=== PATIENT | female | born 1945 | race Hispanic/Latino ===

== ENCOUNTER 2021-12-12 15:35 | Inpatient (IN) | payer OTHER, MEDICARE ==
[~2021-12-12] VITALS: Ht 167.6 cm; Wt 85.6 kg
[2021-12-12] MEDS ORDERED: 0.9%NACL 1000ML 1,000 ML IV ONE ×2 (16:30→21:22)
[2021-12-12 16:56] LABS: BASOPHILS % (AUTO) 1.1 % (0.0-5.0); EOSINOPHILS % (AUTO) 1.4 % (0.0-8.0); HEMATOCRIT 25.9 % (36-48); LYMPHOCYTES % (AUTO) 51.6 % (21.0-51.0); MEAN CORPUSCULAR HEMOGLOBIN 28.9 pg (27.0-33.0); MEAN CORPUSCULAR HGB CONC 31.7 g/dL (32.0-36.0); MEAN CORPUSCULAR VOLUME 91.2 fL (79-99); MONOCYTES % (AUTO) 19.9 % (3.0-13.0); NEUTROPHILS % (AUTO) 25.3 % (40.0-77.0); PLATELET COUNT (AUTO) 66 K/uL (130-400); RED BLOOD CELL COUNT(AUTO) 2.84 MIL/uL (4.00-5.50); RED CELL DISTRIBUTION WIDTH 14.1 % (11.0-15.5); WHITE BLOOD COUNT (AUTO) 2.8 K/uL (4.8-10.8)
[2021-12-12 17:13] LABS: ALBUMIN 1.8 g/dL (3.5-5.0); BILIRUBIN,TOTAL 0.3 mg/dL (0.2-1.0); TOTAL PROTEIN, SERUM 5.7 g/dL (6.0-8.3)
[2021-12-12 17:14] LABS: POTASSIUM 5.6 mmol/L (3.5-5.1)
[2021-12-12 17:16] LABS: CREATININE 10.1 mg/dL (0.5-1.5)
[2021-12-12 17:34] LABS: BAND NEUTROPHILS % (MANUAL) 2 % (0-2); EOSINOPHILS % (MANUAL) 2 % (1-6); LYMPHOCYTES % (MANUAL) 56 % (22-44); MAN.DIFF COMMENT-IMPRESSION MANUAL DIFFERENTIAL; MONOCYTES % (MANUAL) 21 % (2-9); SEGMENTED NEUTROPHILS % 19 % (40-70)
[2021-12-12 17:35] LABS: PLATELET MORPHOLOGY COMMENT DECREASED
[2021-12-12] MEDS ORDERED: DEXTROSE 5 % AND 0.9 % NACL 1,000 ML IV SCH (19:00)
[2021-12-12 19:19] LABS: INR 1.08 (0.85-1.15); PROTHROMBIN TIME 11.7 SEC (9.6-11.6)
[2021-12-12] MEDS ORDERED: KAYEXALATE 15GM/60ML RC ONE (20:00)
[2021-12-12] MEDS ORDERED: SODIUM BICARB 50MEQ 50ML VIAL IV STA (21:15)
[2021-12-12] MEDS ORDERED: 0.9% NACL 500ML IV.SOLN 500 ML IV ONE (21:22)
[2021-12-12] MEDS: DEXTROSE 50%-WATER 50 ML DISP.SYRIN IV ONE ×2 (21:23→23:17)
[2021-12-12] MEDS: HEPARIN 5,000 UNIT VIAL SQ SCH (21:23)
[2021-12-12] MEDS ORDERED: SODIUM BICARB 50MEQ 50ML VIAL 50 ML ONE (21:23)
[2021-12-12] MEDS ORDERED: KAYEXALATE 15GM/60ML ONE (21:24)
[2021-12-12] MEDS ORDERED: 0.9% NACL 500ML IV.SOLN 500 ML IV SCH (21:30)
[2021-12-12] MEDS ORDERED: NOREPINEPHRIN 4MG/NS 250ML 250 ML IV SCH (21:30)
[2021-12-12 21:51] LABS: ABG BASE EXCESS -11.1 mmol/L (-2.0-3.0); ABG HCO3 13.3 mmol/L (21.0-28.0); ABG OXYGEN SATURATION 93.6 % (95.0-99.0); ABG PCO2 25 mmHg (32-45)
[2021-12-12] MEDS ORDERED: IPRATROPIUM/ALBUTEROL SULFATE 3 ML SOLUTION IH PRN (22:00)
[2021-12-12] MEDS ORDERED: ONDANSETRON 4MG INJ IV PRN (22:00)
[2021-12-12] MEDS ORDERED: GUAIFENESIN-DM 200/20 MG 10 ML PO PRN (22:00)
[2021-12-12] MEDS ORDERED: NITROGLYCERIN 0.4 MG SL TAB SL PRN (22:00)
[2021-12-12] MEDS ORDERED: LACTULOSE 20 GM/30 ML UDCUP PO PRN (22:00)
[2021-12-12] MEDS ORDERED: ATOR40TA69 PO (22:20)
[2021-12-12] MEDS ORDERED: METF-444 PO (22:20)
[2021-12-12] MEDS ORDERED: HALO10TA12 PO (22:20)
[2021-12-12] MEDS ORDERED: METO50TA18 PO (22:26)
[2021-12-12] MEDS ORDERED: BENZ2TAB10 PO (22:26)
[2021-12-12] MEDS ORDERED: LOSA50TA64 PO (22:26)
[2021-12-12 23:12] LABS: APPEARANCE,URINE Cloudy (CLEAR); BILIRUBIN,URINE Negative (NEGATIVE); COLOR,URINE Dark Yellow (YELLOW); GLUCOSE, URINE (UA) TRACE mg/dL (NEGATIVE); KETONES,URINE Negative (NEGATIVE); LEUKOCYTE ESTERASE ,URINE Trace (NEGATIVE); NITRATE,URINE Negative (NEGATIVE); OCCULT BLOOD,URINE Large (NEGATIVE); PROTEIN,URINE POS 2+ mg/dL (NEGATIVE); UROBILINOGEN,URINE 0.2 mg/dL (0.2-1.0)
[2021-12-12] MEDS: 0.9%NACL 1000ML 1,000 ML IV SCH (23:17)
[2021-12-12 23:20] LABS: AMPHET/METH SCREEN,URINE NEGATIVE (NEGATIVE); BARBITURATE SCREEN, URINE NEGATIVE (NEGATIVE); BENZODIAZEPINES SCREEN,URINE NEGATIVE (NEGATIVE); CANNABINOID SCREEN,URINE NEGATIVE (NEGATIVE); COCAINE SCREEN,URINE NEGATIVE (NEGATIVE); OPIATE SCREEN,URINE NEGATIVE (NEGATIVE); PHENCYCLIDINE SCREEN,URINE NEGATIVE (NEGATIVE)
[2021-12-12 23:22] LABS: BACTERIA,URINE Few /HPF (None Seen); MUCUS,URINE Rare LPF (None Seen); SQUAMOUS EPITHELIAL CELL,UR Few /HPF (0-2)
[2021-12-13] VITALS (45 sets, daily range): BP systolic 86–150; BP diastolic 36–105
[2021-12-13] MEDS ORDERED: ZOSYN 3.375GM +NS 50ML IV STA (00:07)
[2021-12-13] MEDS ORDERED: SODIUM BICARB 8.4% 50ML SYRING 150 MEQ in 0.9%NACL 1000ML 1,000 ML IVP STA (00:10)
[2021-12-13] MEDS ORDERED: DEXTROSE 50%-WATER 50 ML DISP.SYRIN IV PRN (00:30)
[2021-12-13] MEDS ORDERED: PHARMACY COMMUNICATION MISC SCH (00:30)
[2021-12-13] MEDS ORDERED: GLUCAGON 1MG KIT 1 MG ML IM PRN (00:30)
[2021-12-13] MEDS ORDERED: 0.9% NACL 500ML IV.SOLN 500 ML IV ONE (00:30)
[2021-12-13] MEDS ORDERED: SODIUM BICARB 50MEQ 50ML VIAL 100 ML ONE (01:16)
[2021-12-13] MEDS ORDERED: DEXTROSE 5%-WATER 1,000 ML IV ONE ×2 (01:17→05:58)
[2021-12-13] MEDS ORDERED: SODIUM BICARB 50MEQ 50ML VIAL 50 ML ONE (01:18)
[2021-12-13] MEDS: 0.9%NACL 1000ML 1,000 ML IV SCH ×4 (01:43→17:30)
[2021-12-13] MEDS: SODIUM BICARB 8.4% 50ML SYRING 150 MEQ in DEXTROSE 5%-WATER 850 ML IVP SCH ×6 (02:00→23:17)
[2021-12-13] MEDS ORDERED: SODIUM BICARB 50MEQ 50ML VIAL 150 ML ONE (05:57)
[2021-12-13] MEDS: HEPARIN 5,000 UNIT VIAL SQ SCH ×2 (06:27→18:02)
[2021-12-13] MEDS: INSULIN HUMULIN R 100 UNIT/ML 3ML SQ SCH ×4 (06:33→21:34)
[2021-12-13 07:03] LABS: ABG BASE EXCESS -4.2 mmol/L (-2.0-3.0); ABG HCO3 17.5 mmol/L (21.0-28.0); ABG OXYGEN SATURATION 96.5 % (95.0-99.0); ABG PCO2 25 mmHg (32-45)
[2021-12-13 07:34] LABS: BASOPHILS % (AUTO) 1.3 % (0.0-5.0); EOSINOPHILS % (AUTO) 0.4 % (0.0-8.0); LYMPHOCYTES % (AUTO) 29.7 % (21.0-51.0); MEAN CORPUSCULAR HEMOGLOBIN 28.5 pg (27.0-33.0); MEAN CORPUSCULAR HGB CONC 32.9 g/dL (32.0-36.0); MEAN CORPUSCULAR VOLUME 86.6 fL (79-99); MONOCYTES % (AUTO) 19.7 % (3.0-13.0); NEUTROPHILS % (AUTO) 46.8 % (40.0-77.0); NUCLEATED RED BLOOD CELLS 0.8 % (0.0-0.19); PLATELET COUNT (AUTO) 70 K/uL (130-400); RED BLOOD CELL COUNT(AUTO) 2.77 MIL/uL (4.00-5.50); RED CELL DISTRIBUTION WIDTH 13.9 % (11.0-15.5); WHITE BLOOD COUNT (AUTO) 2.4 K/uL (4.8-10.8)
[2021-12-13 07:42] LABS: ALBUMIN 1.7 g/dL (3.5-5.0)
[2021-12-13 07:44] LABS: PHOSPHORUS 4.3 mg/dL (2.5-4.9)
[2021-12-13 07:56] LABS: BILIRUBIN,TOTAL 0.4 mg/dL (0.2-1.0); POTASSIUM 3.9 mmol/L (3.5-5.1); TOTAL PROTEIN, SERUM 5.4 g/dL (6.0-8.3)
[2021-12-13 08:14] LABS: CREATININE 8.2 mg/dL (0.5-1.5)
[2021-12-13 08:15] LABS: MAGNESIUM 1.7 mg/dL (1.80-2.40)
[2021-12-13 08:48] LABS: HEMOGLOBIN A1C 9.1 % (4.0-6.0)
[2021-12-13] MEDS ORDERED: AMIODARONE 900MG VIAL 540 MG in DEXTROSE 5%-WATER 300 ML IV SCH (16:00)
[2021-12-13] MEDS ORDERED: AMIODARONE 900MG VIAL 360 MG in DEXTROSE 5%-WATER 200 ML IV SCH (16:00)
[2021-12-13] MEDS ORDERED: [UNRECOGNIZED DRUG - REMARK] MISC SCH (16:00)
[2021-12-13] MEDS ORDERED: AMIODARONE 150MG VIAL 150 MG in DEXTROSE 5%-WATER 100 ML IV SCH (16:00)
[2021-12-13] MEDS: MAGNESIUM 2GM PREMIX 50ML 50 ML IV SCH (16:30)
[2021-12-13] MEDS ORDERED: METFORMIN HCL 500 MG TABLET PO SCH ×2 (17:00)
[2021-12-13] MEDS: CEFTRIAXONE 1G VIAL IVP SCH (17:00)
[2021-12-13 18:35] LABS: ALBUMIN 1.3 g/dL (3.5-5.0); CREATININE 6.3 mg/dL (0.5-1.5); PHOSPHORUS 3.1 mg/dL (2.5-4.9); POTASSIUM 3.4 mmol/L (3.5-5.1)
[2021-12-13] MEDS: METOPROLOL TARTRATE 50 MG TAB PO SCH (19:42)
[2021-12-13] MEDS: HALOPERIDOL 5 MG TABLET PO SCH (19:42)
[2021-12-13] MEDS ORDERED: BENZTROPINE 0.5MG TAB PO SCH (21:00)
[2021-12-14] VITALS (37 sets, daily range): BP systolic 92–166; BP diastolic 40–91
[2021-12-14] MEDS ORDERED: POTASSIUM CHLORIDE 20 MEQ/100 ML BAG IV ONE
[2021-12-14] MEDS ORDERED: 0.9%NACL 1000ML 0 ML IV ONE (01:52)
[2021-12-14 04:07] LABS: MEAN CORPUSCULAR HEMOGLOBIN 27.5 pg (27.0-33.0); MEAN CORPUSCULAR HGB CONC 33.2 g/dL (32.0-36.0); MEAN CORPUSCULAR VOLUME 82.9 fL (79-99); RED BLOOD CELL COUNT(AUTO) 2.51 MIL/uL (4.00-5.50); RED CELL DISTRIBUTION WIDTH 13.3 % (11.0-15.5); WHITE BLOOD COUNT (AUTO) 4.4 K/uL (4.8-10.8)
[2021-12-14] MEDS: SODIUM BICARB 8.4% 50ML SYRING 150 MEQ in DEXTROSE 5%-WATER 850 ML IVP SCH ×6 (04:09→20:52)
[2021-12-14 04:11] LABS: HEMATOCRIT 20.8 % (36-48)
[2021-12-14 04:41] LABS: MAGNESIUM 1.6 mg/dL (1.80-2.40)
[2021-12-14] MEDS: INSULIN HUMULIN R 100 UNIT/ML 3ML SQ SCH ×4 (06:12→20:05)
[2021-12-14] MEDS: HEPARIN 5,000 UNIT VIAL SQ SCH (06:33)
[2021-12-14] MEDS: ATORVASTATIN 40 MG TABLET PO SCH (08:12)
[2021-12-14] MEDS: METOPROLOL TARTRATE 50 MG TAB PO SCH ×2 (08:12→20:03)
[2021-12-14] MEDS ORDERED: LOSARTAN 50 MG TABLET PO SCH (09:00)
[2021-12-14 10:50] LABS: INR 1.15 (0.85-1.15); PROTHROMBIN TIME 12.4 SEC (9.6-11.6)
[2021-12-14 10:51] LABS: PARTIAL THROMBOPLASTIN TIME 37.4 SEC (26.3-35.5)
[2021-12-14] MEDS: MAGNESIUM 2GM PREMIX 50ML 50 ML IV SCH (10:54)
[2021-12-14] MEDS: CEFTRIAXONE 1G VIAL IVP SCH (17:07)
[2021-12-14 17:13] LABS: HEMATOCRIT 26.2 % (36-48)
[2021-12-14] MEDS ORDERED: THIAMINE HCL 100 MG TABLET PO ONE (18:30)
[2021-12-14] MEDS: HALOPERIDOL 5 MG TABLET PO SCH (20:03)
[2021-12-14 22:26] LABS: ALBUMIN 1.6 g/dL (3.5-5.0); PHOSPHORUS 3.5 mg/dL (2.5-4.9)
[2021-12-14 22:40] LABS: POTASSIUM 2.9 mmol/L (3.5-5.1)
[2021-12-14] MEDS ORDERED: KCL 20 MEQ ERTAB PO ONE (23:15)
[2021-12-14] MEDS ORDERED: POTASSIUM CHLORIDE 20MEQ/100ML 100 ML IV ONE (23:17)
[2021-12-15] VITALS (29 sets, daily range): BP systolic 62–168; BP diastolic 24–98
[2021-12-15] MEDS: SODIUM BICARB 8.4% 50ML SYRING 150 MEQ in DEXTROSE 5%-WATER 850 ML IVP SCH ×3 (01:37→11:28)
[2021-12-15] MEDS ORDERED: POTASSIUM CHLORIDE 20MEQ/100ML 100 ML IV ONE (02:35)
[2021-12-15 03:48] LABS: HEMATOCRIT 25.7 % (36-48); LYMPHOCYTES % (AUTO) 33.3 % (21.0-51.0); MEAN CORPUSCULAR HEMOGLOBIN 27.9 pg (27.0-33.0); MEAN CORPUSCULAR HGB CONC 32.3 g/dL (32.0-36.0); MEAN CORPUSCULAR VOLUME 86.5 fL (79-99); MONOCYTES % (AUTO) 17.5 % (3.0-13.0); NEUTROPHILS % (AUTO) 46.2 % (40.0-77.0); PLATELET COUNT (AUTO) 72 K/uL (130-400); RED BLOOD CELL COUNT(AUTO) 2.97 MIL/uL (4.00-5.50); RED CELL DISTRIBUTION WIDTH 14.6 % (11.0-15.5); WHITE BLOOD COUNT (AUTO) 4.1 K/uL (4.8-10.8)
[2021-12-15 04:03] LABS: % IRON SATURATION 60.9 % (22-44)
[2021-12-15 04:21] LABS: ALBUMIN 1.5 g/dL (3.5-5.0); BILIRUBIN,TOTAL 0.4 mg/dL (0.2-1.0); CREATININE 4.5 mg/dL (0.5-1.5); POTASSIUM 3.4 mmol/L (3.5-5.1); TOTAL PROTEIN, SERUM 5.4 g/dL (6.0-8.3)
[2021-12-15] MEDS: INSULIN HUMULIN R 100 UNIT/ML 3ML SQ SCH ×4 (06:27→20:21)
[2021-12-15] MEDS: ATORVASTATIN 40 MG TABLET PO SCH (08:32)
[2021-12-15] MEDS: METOPROLOL TARTRATE 50 MG TAB PO SCH ×2 (08:32→20:13)
[2021-12-15 10:39] LABS: MAGNESIUM 1.4 mg/dL (1.80-2.40)
[2021-12-15 10:41] LABS: POTASSIUM 2.9 mmol/L (3.5-5.1)
[2021-12-15] MEDS: MAGNESIUM 2GM PREMIX 50ML 50 ML IV SCH (11:08)
[2021-12-15] MEDS ORDERED: FUROSEMIDE 100MG VIAL ONE (11:48)
[2021-12-15] MEDS ORDERED: FUROSEMIDE 40MG VIAL IVP ONE (12:00)
[2021-12-15] MEDS ORDERED: KCL 20 MEQ ERTAB PO ONE ×2 (12:11)
[2021-12-15] MEDS: KCL 20 MEQ ERTAB PO PRN ×4 (12:25→18:14)
[2021-12-15] MEDS ORDERED: POTASSIUM CHLORIDE 20MEQ/100ML 100 ML IV PRN (12:30)
[2021-12-15] MEDS ORDERED: FUROSEMIDE 40MG VIAL ONE (15:09)
[2021-12-15] MEDS ORDERED: FUROSEMIDE 40MG VIAL IV ONE ×2 (15:30→19:00)
[2021-12-15] MEDS ORDERED: 0.9%NACL 1000ML 1,000 ML IV ONE (15:33)
[2021-12-15] MEDS ORDERED: 0.9%NACL 1000ML 1,000 ML IV SCH (16:00)
[2021-12-15 16:39] LABS: POTASSIUM 3.2 mmol/L (3.5-5.1)
[2021-12-15 16:54] LABS: ALBUMIN 1.6 g/dL (3.5-5.0)
[2021-12-15] MEDS: CEFTRIAXONE 1G VIAL IVP SCH (17:05)
[2021-12-15] MEDS: ACETAMINOPHEN 325 MG TAB PO PRN (17:07)
[2021-12-15] MEDS: HALOPERIDOL 5 MG TABLET PO SCH (20:13)
[2021-12-15] MEDS: AMIODARONE 200 MG TABLET PO SCH (20:14)
[2021-12-15 20:55] LABS: CREATININE 3.9 mg/dL (0.5-1.5); MAGNESIUM 1.8 mg/dL (1.80-2.40); POTASSIUM 3.6 mmol/L (3.5-5.1)
[2021-12-16] VITALS (22 sets, daily range): BP systolic 83–189; BP diastolic 32–162
[2021-12-16] MEDS: MAGNESIUM 2GM PREMIX 50ML 50 ML IV SCH (00:03)
[2021-12-16] MEDS: KCL 20 MEQ ERTAB PO PRN ×2 (00:03→01:56)
[2021-12-16 03:41] LABS: BASOPHILS % (AUTO) 0.6 % (0.0-5.0); EOSINOPHILS % (AUTO) 1.1 % (0.0-8.0); HEMATOCRIT 30.3 % (36-48); LYMPHOCYTES % (AUTO) 21.1 % (21.0-51.0); MEAN CORPUSCULAR HEMOGLOBIN 27.5 pg (27.0-33.0); MEAN CORPUSCULAR HGB CONC 31.4 g/dL (32.0-36.0); MEAN CORPUSCULAR VOLUME 87.6 fL (79-99); MONOCYTES % (AUTO) 11.9 % (3.0-13.0); NEUTROPHILS % (AUTO) 63.3 % (40.0-77.0); NUCLEATED RED BLOOD CELLS 0.7 % (0.0-0.19); PLATELET COUNT (AUTO) 103 K/uL (130-400); RED BLOOD CELL COUNT(AUTO) 3.46 MIL/uL (4.00-5.50); RED CELL DISTRIBUTION WIDTH 14.6 % (11.0-15.5)
[2021-12-16 04:08] LABS: ALBUMIN 1.8 g/dL (3.5-5.0); CHLORIDE 99 mmol/L (101-111); CREATININE 3.9 mg/dL (0.5-1.5); GLOMERULAR FILTR. RATE CALC 12 mL/min (>60); GLUCOSE,RANDOM 154 mg/dL (70-105); PHOSPHORUS 3.5 mg/dL (2.5-4.9); POTASSIUM 3.9 mmol/L (3.5-5.1); SODIUM SERUM 146 mmol/L (136-145)
[2021-12-16 04:51] LABS: CARBON DIOXIDE > 45 mmol/L (21-32)
[2021-12-16 04:53] LABS: UREA NITROGEN, BLOOD 77 mg/dL (7-18)
[2021-12-16] MEDS: LACTATED RINGERS 1000ML 1,000 ML IV SCH ×2 (06:28→16:07)
[2021-12-16] MEDS: INSULIN HUMULIN R 100 UNIT/ML 3ML SQ SCH ×4 (06:30→20:51)
[2021-12-16] MEDS: ATORVASTATIN 40 MG TABLET PO SCH (09:19)
[2021-12-16] MEDS: METOPROLOL TARTRATE 50 MG TAB PO SCH ×2 (09:19→20:50)
[2021-12-16] MEDS: AMIODARONE 200 MG TABLET PO SCH (09:19)
[2021-12-16] MEDS: FOLIC ACID 1 MG TABLET PO SCH (09:19)
[2021-12-16] MEDS: CYANOCOBALAMIN (VITAMIN B-12) 100 MCG TABLET PO SCH (09:19)
[2021-12-16] MEDS: FUROSEMIDE 100MG VIAL IV SCH ×2 (12:35→17:19)
[2021-12-16] MEDS ORDERED: CLONAZEPAM 1MG TAB PO STA (15:24)
[2021-12-16] MEDS ORDERED: OLANZAPINE ODT 5 MG TAB SL SCH ×2 (15:30→16:30)
[2021-12-16] MEDS: OLANZAPINE ODT 5 MG TAB SL PRN (16:07)
[2021-12-16] MEDS: CEFTRIAXONE 1G VIAL IVP SCH (16:09)
[2021-12-16] MEDS: HALOPERIDOL 5 MG TABLET PO SCH (20:50)
[2021-12-16 21:16] LABS: CREATININE 3.9 mg/dL (0.5-1.5); POTASSIUM 4.1 mmol/L (3.5-5.1)
[2021-12-17] VITALS (15 sets, daily range): BP systolic 104–167; BP diastolic 40–115
[2021-12-17] MEDS: FUROSEMIDE 100MG VIAL IV SCH ×4 (00:24→17:55)
[2021-12-17] MEDS: LACTATED RINGERS 1000ML 1,000 ML IV SCH ×3 (00:30→22:00)
[2021-12-17 03:39] LABS: BASOPHILS % (AUTO) 0.6 % (0.0-5.0); HEMATOCRIT 27.6 % (36-48); MEAN CORPUSCULAR HEMOGLOBIN 28.3 pg (27.0-33.0); MEAN CORPUSCULAR HGB CONC 31.2 g/dL (32.0-36.0); MEAN CORPUSCULAR VOLUME 90.8 fL (79-99); MONOCYTES % (AUTO) 10.6 % (3.0-13.0); NEUTROPHILS % (AUTO) 63.2 % (40.0-77.0); PLATELET COUNT (AUTO) 112 K/uL (130-400); RED BLOOD CELL COUNT(AUTO) 3.04 MIL/uL (4.00-5.50); WHITE BLOOD COUNT (AUTO) 7.3 K/uL (4.8-10.8)
[2021-12-17] MEDS: OLANZAPINE ODT 5 MG TAB SL PRN ×2 (05:39→20:10)
[2021-12-17 05:51] LABS: CREATININE 3.9 mg/dL (0.5-1.5); POTASSIUM 3.7 mmol/L (3.5-5.1)
[2021-12-17] MEDS: INSULIN HUMULIN R 100 UNIT/ML 3ML SQ SCH ×4 (06:45→21:00)
[2021-12-17] MEDS: AMIODARONE 200 MG TABLET PO SCH (08:44)
[2021-12-17] MEDS: FOLIC ACID 1 MG TABLET PO SCH (08:44)
[2021-12-17] MEDS: METOPROLOL TARTRATE 50 MG TAB PO SCH ×2 (08:44→21:00)
[2021-12-17] MEDS: ATORVASTATIN 40 MG TABLET PO SCH (08:44)
[2021-12-17] MEDS: CEFTRIAXONE 1G VIAL IVP SCH (08:44)
[2021-12-17] MEDS: CYANOCOBALAMIN (VITAMIN B-12) 100 MCG TABLET PO SCH (08:44)
[2021-12-17] MEDS ORDERED: DiphenhydrAMINE HCL 50 MG/ML VIAL IM ONE (16:00)
[2021-12-17] MEDS: CLONAZEPAM 1MG TAB PO PRN (17:57)
[2021-12-17 20:30] LABS: POTASSIUM 3.9 mmol/L (3.5-5.1)
[2021-12-17] MEDS ORDERED: DiphenhydrAMINE HCL 50 MG/ML VIAL IV ONE (20:30)
[2021-12-17] MEDS ORDERED: DiphenhydrAMINE HCL 50 MG/ML VIAL ONE (20:34)
[2021-12-18] VITALS (19 sets, daily range): BP systolic 69–166; BP diastolic 40–119
[2021-12-18] MEDS: FUROSEMIDE 100MG VIAL IV SCH ×5 (01:00→23:54)
[2021-12-18] MEDS ORDERED: DiphenhydrAMINE HCL 50 MG/ML VIAL IM SCH (04:00)
[2021-12-18] MEDS: DiphenhydrAMINE HCL 50 MG/ML VIAL IV SCH ×4 (04:30→20:23)
[2021-12-18] MEDS: INSULIN HUMULIN R 100 UNIT/ML 3ML SQ SCH ×4 (06:44→20:06)
[2021-12-18] MEDS: CLONAZEPAM 1MG TAB PO PRN (07:13)
[2021-12-18] MEDS: LACTATED RINGERS 1000ML 1,000 ML IV SCH ×2 (08:10→18:31)
[2021-12-18] MEDS: ATORVASTATIN 40 MG TABLET PO SCH (08:48)
[2021-12-18] MEDS: CYANOCOBALAMIN (VITAMIN B-12) 100 MCG TABLET PO SCH (08:48)
[2021-12-18] MEDS: AMIODARONE 200 MG TABLET PO SCH (08:48)
[2021-12-18] MEDS: CEFTRIAXONE 1G VIAL IVP SCH (08:48)
[2021-12-18] MEDS: FOLIC ACID 1 MG TABLET PO SCH (08:48)
[2021-12-18] MEDS: METOPROLOL TARTRATE 50 MG TAB PO SCH ×2 (08:48→20:23)
[2021-12-18 10:33] LABS: HEMATOCRIT 27.8 % (36-48); MEAN CORPUSCULAR HEMOGLOBIN 27.5 pg (27.0-33.0); MEAN CORPUSCULAR HGB CONC 29.9 g/dL (32.0-36.0); MEAN CORPUSCULAR VOLUME 92.1 fL (79-99); RED BLOOD CELL COUNT(AUTO) 3.02 MIL/uL (4.00-5.50); RED CELL DISTRIBUTION WIDTH 15.5 % (11.0-15.5); WHITE BLOOD COUNT (AUTO) 10.6 K/uL (4.8-10.8)
[2021-12-18 10:49] LABS: CREATININE 4.1 mg/dL (0.5-1.5); MAGNESIUM 1.6 mg/dL (1.80-2.40); POTASSIUM 3.6 mmol/L (3.5-5.1)
[2021-12-18] MEDS: MAGNESIUM 2GM PREMIX 50ML 50 ML IV SCH (11:48)
[2021-12-18] MEDS ORDERED: 0.9%NACL 1000ML 1,000 ML IV SCH (14:30)
[2021-12-18] MEDS ORDERED: NOREPINEPHRIN 4MG/NS 250ML 250 ML IV PRN (14:30)
[2021-12-18] MEDS ORDERED: 0.9% NACL 500ML IV.SOLN 0 ML IV ONE (14:31)
[2021-12-18] MEDS ORDERED: 0.9%NACL 1000ML 1,000 ML IV ONE (14:35)
[2021-12-18] MEDS ORDERED: LORAZEPAM 2 MG/ML 1 ML VIAL ONE (19:02)
[2021-12-18] MEDS ORDERED: LEVETIRACETAM 500 MG/5 ML SD VIAL IV SCH (19:30)
[2021-12-18] MEDS ORDERED: LEVETIRACETAM 1,000 MG in 0.9%NACL 100ML 100 ML IV SCH (19:30)
[2021-12-18] MEDS ORDERED: COMPOUND IV MISC 1 EACH IVSOLN MISC PRN (19:30)
[2021-12-18] MEDS: BALSAM PERU/CASTOR OIL 60 GM TUBE TP SCH (20:23)
[2021-12-19] VITALS (21 sets, daily range): BP systolic 94–146; BP diastolic 42–69
[2021-12-19 00:28] LABS: APPEARANCE,URINE Clear (CLEAR); BILIRUBIN,URINE Negative (NEGATIVE); COLOR,URINE Yellow (YELLOW); GLUCOSE, URINE (UA) Negative (NEGATIVE); KETONES,URINE Negative (NEGATIVE); LEUKOCYTE ESTERASE ,URINE Trace (NEGATIVE); NITRATE,URINE Negative (NEGATIVE); OCCULT BLOOD,URINE Moderate (NEGATIVE); PH,URINE 8.5 (5.0-8.0); PROTEIN,URINE Trace mg/dL (NEGATIVE); UROBILINOGEN,URINE 0.2 mg/dL (0.2-1.0)
[2021-12-19 00:35] LABS: BACTERIA,URINE Rare /HPF (None Seen); SQUAMOUS EPITHELIAL CELL,UR 0-2 /HPF (0-2); WBC,URINE 0-1 /HPF (0-1)
[2021-12-19] MEDS: DiphenhydrAMINE HCL 50 MG/ML VIAL IV SCH ×3 (03:28→20:48)
[2021-12-19] MEDS: LACTATED RINGERS 1000ML 1,000 ML IV SCH ×3 (03:28→23:20)
[2021-12-19 03:49] LABS: HEMATOCRIT 27.3 % (36-48); MEAN CORPUSCULAR HGB CONC 28.6 g/dL (32.0-36.0); MEAN CORPUSCULAR VOLUME 94.5 fL (79-99); RED BLOOD CELL COUNT(AUTO) 2.89 MIL/uL (4.00-5.50); RED CELL DISTRIBUTION WIDTH 15.5 % (11.0-15.5); WHITE BLOOD COUNT (AUTO) 11.1 K/uL (4.8-10.8)
[2021-12-19 04:57] LABS: ALBUMIN 1.9 g/dL (3.5-5.0); BILIRUBIN,TOTAL 0.6 mg/dL (0.2-1.0); CREATININE 3.9 mg/dL (0.5-1.5); MAGNESIUM 2.1 mg/dL (1.80-2.40); POTASSIUM 4.1 mmol/L (3.5-5.1); TOTAL PROTEIN, SERUM 6.1 g/dL (6.0-8.3)
[2021-12-19] MEDS: FUROSEMIDE 100MG VIAL IV SCH ×4 (05:48→23:20)
[2021-12-19] MEDS: INSULIN HUMULIN R 100 UNIT/ML 3ML SQ SCH ×4 (07:30→20:19)
[2021-12-19] MEDS: AMIODARONE 200 MG TABLET PO SCH (08:21)
[2021-12-19] MEDS: ATORVASTATIN 40 MG TABLET PO SCH (08:21)
[2021-12-19] MEDS: FOLIC ACID 1 MG TABLET PO SCH (08:21)
[2021-12-19] MEDS: METOPROLOL TARTRATE 50 MG TAB PO SCH ×2 (08:21→20:19)
[2021-12-19] MEDS: CYANOCOBALAMIN (VITAMIN B-12) 100 MCG TABLET PO SCH (08:21)
[2021-12-19] MEDS ORDERED: LEVETIRACETAM 500 MG in 0.9%NACL 100ML 100 ML IV SCH (09:00)
[2021-12-19] MEDS ORDERED: LEVETIRACETAM 500 MG/5 ML SD VIAL IV SCH ×2 (09:00→19:30)
[2021-12-19] MEDS: CEFTRIAXONE 1G VIAL IVP SCH (09:18)
[2021-12-19] MEDS: BALSAM PERU/CASTOR OIL 60 GM TUBE TP SCH ×3 (09:19→20:19)
[2021-12-19] MEDS ORDERED: DiphenhydrAMINE HCL 50 MG/ML VIAL IV PRN (16:00)
[2021-12-19] MEDS ORDERED: LEVETIRACETAM 750 MG in 0.9%NACL 100ML 100 ML IV SCH (19:30)
[2021-12-19] MEDS ORDERED: DiphenhydrAMINE HCL 50 MG/ML VIAL ONE (20:12)
[2021-12-20] VITALS (37 sets, daily range): BP systolic 91–127; BP diastolic 39–82
[2021-12-20] MEDS: DiphenhydrAMINE HCL 50 MG/ML VIAL IV SCH ×2 (03:31→08:19)
[2021-12-20] MEDS: FUROSEMIDE 100MG VIAL IV SCH ×4 (05:03→23:29)
[2021-12-20] MEDS: INSULIN HUMULIN R 100 UNIT/ML 3ML SQ SCH ×4 (06:32→20:27)
[2021-12-20] MEDS: CEFTRIAXONE 1G VIAL IVP SCH (08:19)
[2021-12-20] MEDS: CYANOCOBALAMIN (VITAMIN B-12) 100 MCG TABLET PO SCH (08:19)
[2021-12-20] MEDS: LACTATED RINGERS 1000ML 1,000 ML IV SCH ×2 (08:19→20:31)
[2021-12-20] MEDS: ATORVASTATIN 40 MG TABLET PO SCH (08:19)
[2021-12-20] MEDS: AMIODARONE 200 MG TABLET PO SCH (08:19)
[2021-12-20] MEDS: FOLIC ACID 1 MG TABLET PO SCH (08:19)
[2021-12-20] MEDS: METOPROLOL TARTRATE 50 MG TAB PO SCH ×2 (08:19→20:26)
[2021-12-20] MEDS: BALSAM PERU/CASTOR OIL 60 GM TUBE TP SCH ×3 (08:20→20:45)
[2021-12-20] MEDS ORDERED: MIDODRINE HCL 5 MG TABLET PO SCH ×2 (09:30→14:00)
[2021-12-20 09:48] LABS: CREATININE 3.4 mg/dL (0.5-1.5); POTASSIUM 3.2 mmol/L (3.5-5.1)
[2021-12-20 09:51] LABS: PHOSPHORUS 4.4 mg/dL (2.5-4.9)
[2021-12-20] MEDS: CHLORHEXIDINE GLUCONATE 473 ML MOUTHWASH MM SCH ×2 (10:53→20:45)
[2021-12-20] MEDS: KCL 20 MEQ ERTAB PO PRN ×2 (12:14→14:30)
[2021-12-20] MEDS ORDERED: LEVETIRACETAM 500 MG/5 ML SD VIAL IV SCH (16:10)
[2021-12-20] MEDS ORDERED: COMPOUND IV MISC 1 EACH IVSOLN MISC PRN (16:30)
[2021-12-20] MEDS: LEVETIRACETAM 750 MG in 0.9%NACL 100ML 100 ML IV SCH ×2 (16:48→20:32)
[2021-12-20] MEDS: CLONAZEPAM 1MG TAB PO PRN (20:32)
[2021-12-20] MEDS: MIDODRINE HCL 5 MG TABLET PO PRN (20:32)
[2021-12-20] MEDS: ACETAMINOPHEN 325 MG TAB PO PRN (20:36)
[2021-12-20] MEDS ORDERED: OLANZAPINE 5 MG TAB ONE (23:17)
[2021-12-21 00:02] VITALS: BP 106/45
[2021-12-21] MEDS: ACETAMINOPHEN 325 MG TAB PO PRN (03:21)
[2021-12-21 04:05] VITALS: BP 96/79
[2021-12-21] MEDS: CLONAZEPAM 1MG TAB PO PRN ×2 (05:07→21:35)
[2021-12-21] MEDS: FUROSEMIDE 100MG VIAL IV SCH ×3 (05:09→18:19)
[2021-12-21] MEDS: LACTATED RINGERS 1000ML 1,000 ML IV SCH ×2 (05:24→13:35)
[2021-12-21] MEDS: INSULIN HUMULIN R 100 UNIT/ML 3ML SQ SCH ×3 (06:45→18:00)
[2021-12-21] MEDS: CHLORHEXIDINE GLUCONATE 473 ML MOUTHWASH MM SCH ×2 (09:13→21:00)
[2021-12-21] MEDS: CEFTRIAXONE 1G VIAL IVP SCH (09:13)
[2021-12-21] MEDS: CYANOCOBALAMIN (VITAMIN B-12) 100 MCG TABLET PO SCH (09:13)
[2021-12-21] MEDS: METOPROLOL TARTRATE 50 MG TAB PO SCH ×2 (09:13→21:00)
[2021-12-21] MEDS: ATORVASTATIN 40 MG TABLET PO SCH (09:13)
[2021-12-21] MEDS: FOLIC ACID 1 MG TABLET PO SCH (09:13)
[2021-12-21] MEDS: AMIODARONE 200 MG TABLET PO SCH (09:13)
[2021-12-21] MEDS: BALSAM PERU/CASTOR OIL 60 GM TUBE TP SCH ×3 (09:14→21:00)
[2021-12-21] MEDS: LEVETIRACETAM 750 MG in 0.9%NACL 100ML 100 ML IV SCH ×2 (09:15→21:00)
[2021-12-21 11:40] VITALS: BP 100/44
[2021-12-21 16:30] VITALS: BP 112/50
[2021-12-21] MEDS: CITALOPRAM 20 MG TABLET PO SCH (18:19)
[2021-12-21 20:00] VITALS: BP 115/65
[2021-12-22] VITALS: BP 109/61
[2021-12-22] MEDS ORDERED: FUROSEMIDE 20MG VIAL ONE ×2 (01:28→06:38)
[2021-12-22] MEDS: LACTATED RINGERS 1000ML 1,000 ML IV SCH ×2 (01:36→12:10)
[2021-12-22 04:00] VITALS: BP 106/56
[2021-12-22 05:08] LABS: HEMATOCRIT 28.4 % (36-48); MEAN CORPUSCULAR HEMOGLOBIN 27.6 pg (27.0-33.0); MEAN CORPUSCULAR HGB CONC 28.5 g/dL (32.0-36.0); MEAN CORPUSCULAR VOLUME 96.9 fL (79-99); PLATELET COUNT (AUTO) 132 K/uL (130-400); RED BLOOD CELL COUNT(AUTO) 2.93 MIL/uL (4.00-5.50); RED CELL DISTRIBUTION WIDTH 15.6 % (11.0-15.5); WHITE BLOOD COUNT (AUTO) 12.7 K/uL (4.8-10.8)
[2021-12-22 05:24] LABS: CREATININE 3.7 mg/dL (0.5-1.5); POTASSIUM 3.6 mmol/L (3.5-5.1)
[2021-12-22] MEDS: INSULIN HUMULIN R 100 UNIT/ML 3ML SQ SCH ×4 (06:00→17:57)
[2021-12-22] MEDS: FUROSEMIDE 100MG VIAL IV SCH ×2 (06:00)
[2021-12-22] MEDS ORDERED: FUROSEMIDE 40MG VIAL ONE (06:38)
[2021-12-22 07:20] VITALS: BP 93/39
[2021-12-22] MEDS: CHLORHEXIDINE GLUCONATE 473 ML MOUTHWASH MM SCH ×2 (08:32→21:00)
[2021-12-22] MEDS: CYANOCOBALAMIN (VITAMIN B-12) 100 MCG TABLET PO SCH (08:32)
[2021-12-22] MEDS: ATORVASTATIN 40 MG TABLET PO SCH (08:32)
[2021-12-22] MEDS: METOPROLOL TARTRATE 50 MG TAB PO SCH ×2 (08:32→20:12)
[2021-12-22] MEDS: FOLIC ACID 1 MG TABLET PO SCH (08:32)
[2021-12-22] MEDS: CITALOPRAM 20 MG TABLET PO SCH (08:32)
[2021-12-22] MEDS: CEFTRIAXONE 1G VIAL IVP SCH (08:32)
[2021-12-22] MEDS: BALSAM PERU/CASTOR OIL 60 GM TUBE TP SCH ×3 (08:33→23:39)
[2021-12-22] MEDS: AMIODARONE 200 MG TABLET PO SCH (08:33)
[2021-12-22] MEDS: LEVETIRACETAM 750 MG in 0.9%NACL 100ML 100 ML IV SCH ×2 (09:06→20:11)
[2021-12-22 11:10] VITALS: BP 118/75
[2021-12-22 11:20] VITALS: BP 117/53
[2021-12-22] MEDS: FUROSEMIDE 40MG VIAL IV SCH ×3 (12:27→21:30)
[2021-12-22] MEDS ORDERED: HYDROXYZINE 25 MG TABLET PO STA (15:35)
[2021-12-22] MEDS: CLONAZEPAM 1MG TAB PO PRN (17:14)
[2021-12-22] MEDS: ACETAMINOPHEN 325 MG TAB PO PRN (17:15)
[2021-12-22] MEDS ORDERED: FUROSEMIDE 100MG VIAL IV SCH (21:00)
[2021-12-22 23:50] VITALS: BP 113/64
[2021-12-23] MEDS: LACTATED RINGERS 1000ML 1,000 ML IV SCH ×3 (01:01→21:56)
[2021-12-23] MEDS: CLONAZEPAM 1MG TAB PO PRN ×3 (03:48→21:58)
[2021-12-23] MEDS: FUROSEMIDE 40MG VIAL IV SCH ×4 (03:50→21:58)
[2021-12-23 03:56] VITALS: BP 152/81
[2021-12-23 04:59] LABS: BASOPHILS % (AUTO) 0.3 % (0.0-5.0); EOSINOPHILS % (AUTO) 2.3 % (0.0-8.0); HEMATOCRIT 28.2 % (36-48); LYMPHOCYTES % (AUTO) 21.5 % (21.0-51.0); MEAN CORPUSCULAR HEMOGLOBIN 27.5 pg (27.0-33.0); MEAN CORPUSCULAR HGB CONC 28.4 g/dL (32.0-36.0); MEAN CORPUSCULAR VOLUME 96.9 fL (79-99); MONOCYTES % (AUTO) 5.2 % (3.0-13.0); NEUTROPHILS % (AUTO) 70.3 % (40.0-77.0); PLATELET COUNT (AUTO) 214 K/uL (130-400); RED BLOOD CELL COUNT(AUTO) 2.91 MIL/uL (4.00-5.50); RED CELL DISTRIBUTION WIDTH 15.1 % (11.0-15.5); WHITE BLOOD COUNT (AUTO) 11.6 K/uL (4.8-10.8)
[2021-12-23 05:11] LABS: B-TYPE NATRIURETIC PEPTIDE 201 pg/mL (0-100)
[2021-12-23] MEDS: INSULIN HUMULIN R 100 UNIT/ML 3ML SQ SCH ×4 (06:00→16:33)
[2021-12-23 06:51] VITALS: BP 131/53
[2021-12-23 08:06] VITALS: BP 131/53
[2021-12-23] MEDS: CHLORHEXIDINE GLUCONATE 473 ML MOUTHWASH MM SCH ×2 (09:00→21:57)
[2021-12-23] MEDS: BALSAM PERU/CASTOR OIL 60 GM TUBE TP SCH ×3 (09:00→21:58)
[2021-12-23] MEDS: METOPROLOL TARTRATE 50 MG TAB PO SCH ×2 (09:25→21:57)
[2021-12-23] MEDS: LEVETIRACETAM 750 MG in 0.9%NACL 100ML 100 ML IV SCH ×2 (09:25→21:56)
[2021-12-23] MEDS: CEFTRIAXONE 1G VIAL IVP SCH (09:25)
[2021-12-23] MEDS: CITALOPRAM 20 MG TABLET PO SCH (09:26)
[2021-12-23] MEDS: FOLIC ACID 1 MG TABLET PO SCH (09:26)
[2021-12-23] MEDS: AMIODARONE 200 MG TABLET PO SCH (09:26)
[2021-12-23] MEDS: CYANOCOBALAMIN (VITAMIN B-12) 100 MCG TABLET PO SCH (09:26)
[2021-12-23] MEDS: ATORVASTATIN 40 MG TABLET PO SCH (09:27)
[2021-12-23 12:00] VITALS: BP 120/89
[2021-12-23] MEDS: ACETAMINOPHEN 325 MG TAB PO PRN (15:36)
[2021-12-23 16:42] VITALS: BP 105/74
[2021-12-23] MEDS: HYDROXYZINE 25 MG TABLET PO PRN (17:49)
[2021-12-23 21:22] VITALS: BP 127/75
[2021-12-24 00:30] VITALS: BP 131/53
[2021-12-24 05:13] VITALS: BP 122/56
[2021-12-24] MEDS: INSULIN HUMULIN R 100 UNIT/ML 3ML SQ SCH ×3 (06:00→12:00)
[2021-12-24] MEDS: FUROSEMIDE 40MG VIAL IV SCH ×3 (06:43→17:31)
[2021-12-24] MEDS: LACTATED RINGERS 1000ML 1,000 ML IV SCH ×2 (06:47→17:31)
[2021-12-24 08:00] VITALS: BP 128/54
[2021-12-24] MEDS: BALSAM PERU/CASTOR OIL 60 GM TUBE TP SCH ×2 (09:00→14:19)
[2021-12-24 09:25] LABS: CREATININE 2.6 mg/dL (0.5-1.5)
[2021-12-24] MEDS: CEFTRIAXONE 1G VIAL IVP SCH (10:19)
[2021-12-24] MEDS: CYANOCOBALAMIN (VITAMIN B-12) 100 MCG TABLET PO SCH (10:21)
[2021-12-24] MEDS: METOPROLOL TARTRATE 50 MG TAB PO SCH (10:21)
[2021-12-24] MEDS: FOLIC ACID 1 MG TABLET PO SCH (10:21)
[2021-12-24] MEDS: AMIODARONE 200 MG TABLET PO SCH (10:21)
[2021-12-24] MEDS: CITALOPRAM 20 MG TABLET PO SCH (10:21)
[2021-12-24] MEDS: LEVETIRACETAM 750 MG in 0.9%NACL 100ML 100 ML IV SCH (10:21)
[2021-12-24] MEDS: ATORVASTATIN 40 MG TABLET PO SCH (10:21)
[2021-12-24] MEDS: CHLORHEXIDINE GLUCONATE 473 ML MOUTHWASH MM SCH (10:33)
[2021-12-24 12:00] VITALS: BP 107/32
[2021-12-24 16:00] VITALS: BP 128/54
[2021-12-24] MEDS ORDERED: KCL 20 MEQ ERTAB PO ONE (20:30)
[2021-12-24 20:44] VITALS: BP 109/50
[2021-12-25] VITALS (8 sets, daily range): BP systolic 82–138; BP diastolic 43–61
[2021-12-25] MEDS: POTASSIUM CHLORIDE 10% ELIXIR 20 MEQ/15 ML UDCUP PO PRN ×2 (00:37→05:36)
[2021-12-25] MEDS: HYDROXYZINE 25 MG TABLET PO PRN (00:38)
[2021-12-25] MEDS: METOPROLOL TARTRATE 50 MG TAB PO SCH ×3 (00:38→20:37)
[2021-12-25] MEDS: FUROSEMIDE 40MG VIAL IV SCH ×4 (00:38→18:11)
[2021-12-25] MEDS: LEVETIRACETAM 750 MG in 0.9%NACL 100ML 100 ML IV SCH ×3 (00:40→20:37)
[2021-12-25] MEDS: CHLORHEXIDINE GLUCONATE 473 ML MOUTHWASH MM SCH ×2 (00:41→09:43)
[2021-12-25] MEDS: BALSAM PERU/CASTOR OIL 60 GM TUBE TP SCH ×3 (00:41→13:35)
[2021-12-25] MEDS: LACTATED RINGERS 1000ML 1,000 ML IV SCH ×2 (03:48→11:50)
[2021-12-25 04:39] LABS: HEMATOCRIT 24.6 % (36-48); MEAN CORPUSCULAR HEMOGLOBIN 28.2 pg (27.0-33.0); MEAN CORPUSCULAR HGB CONC 28.9 g/dL (32.0-36.0); MEAN CORPUSCULAR VOLUME 97.6 fL (79-99); RED BLOOD CELL COUNT(AUTO) 2.52 MIL/uL (4.00-5.50)
[2021-12-25 04:58] LABS: ALBUMIN 1.9 g/dL (3.5-5.0); BILIRUBIN,TOTAL 0.3 mg/dL (0.2-1.0); CREATININE 2.3 mg/dL (0.5-1.5); MAGNESIUM 1.3 mg/dL (1.80-2.40); POTASSIUM 3.3 mmol/L (3.5-5.1); TOTAL PROTEIN, SERUM 6.4 g/dL (6.0-8.3)
[2021-12-25] MEDS: INSULIN HUMULIN R 100 UNIT/ML 3ML SQ SCH ×4 (05:23→18:00)
[2021-12-25] MEDS: MAGNESIUM 2GM PREMIX 50ML 50 ML IV SCH (05:35)
[2021-12-25] MEDS: CLONAZEPAM 1MG TAB PO PRN ×2 (05:36→20:38)
[2021-12-25] MEDS: CEFTRIAXONE 1G VIAL IVP SCH (09:35)
[2021-12-25] MEDS: FOLIC ACID 1 MG TABLET PO SCH (09:35)
[2021-12-25] MEDS: CYANOCOBALAMIN (VITAMIN B-12) 100 MCG TABLET PO SCH (09:35)
[2021-12-25] MEDS: ATORVASTATIN 40 MG TABLET PO SCH (09:35)
[2021-12-25] MEDS: MIDODRINE HCL 5 MG TABLET PO PRN (09:35)
[2021-12-25] MEDS: CITALOPRAM 20 MG TABLET PO SCH (09:36)
[2021-12-25] MEDS: AMIODARONE 200 MG TABLET PO SCH (09:36)
[2021-12-25] MEDS: 1/2 NS 1000ML 1,000 ML IV SCH (14:15)
[2021-12-25] MEDS: ACETAMINOPHEN 325 MG TAB PO PRN (20:38)
[2021-12-25] MEDS ORDERED: LACTULOSE 20 GM/30 ML UDCUP PO PRN (22:00)
[2021-12-25] MEDS ORDERED: LACTULOSE 20 GM/30 ML UDCUP PO ONE (22:00)
[2021-12-25] MEDS ORDERED: BISACODYL 10 MG SUPP.RECT RC ONE (22:00)
[2021-12-26] MEDS: FUROSEMIDE 40MG VIAL IV SCH ×4 (00:41→17:42)
[2021-12-26] MEDS: BALSAM PERU/CASTOR OIL 60 GM TUBE TP SCH ×4 (00:41→21:36)
[2021-12-26] MEDS: POTASSIUM CHLORIDE 10% ELIXIR 20 MEQ/15 ML UDCUP PO PRN (00:41)
[2021-12-26] MEDS: CHLORHEXIDINE GLUCONATE 473 ML MOUTHWASH MM SCH ×3 (00:42→21:35)
[2021-12-26] MEDS: 1/2 NS 1000ML 1,000 ML IV SCH ×3 (01:14→21:38)
[2021-12-26] MEDS: HYDROXYZINE 25 MG TABLET PO PRN ×2 (02:51→21:32)
[2021-12-26] MEDS: ACETAMINOPHEN 325 MG TAB PO PRN ×2 (03:03→17:41)
[2021-12-26 03:58] VITALS: BP 126/54
[2021-12-26 04:17] LABS: HEMATOCRIT 22.8 % (36-48); MEAN CORPUSCULAR HEMOGLOBIN 28.7 pg (27.0-33.0); MEAN CORPUSCULAR HGB CONC 31.1 g/dL (32.0-36.0); MEAN CORPUSCULAR VOLUME 92.3 fL (79-99); RED BLOOD CELL COUNT(AUTO) 2.47 MIL/uL (4.00-5.50); RED CELL DISTRIBUTION WIDTH 14.6 % (11.0-15.5); WHITE BLOOD COUNT (AUTO) 8.6 K/uL (4.8-10.8)
[2021-12-26 04:27] LABS: CREATININE 1.9 mg/dL (0.5-1.5); MAGNESIUM 1.7 mg/dL (1.80-2.40); POTASSIUM 3.5 mmol/L (3.5-5.1)
[2021-12-26] MEDS: CLONAZEPAM 1MG TAB PO PRN ×3 (04:47→21:32)
[2021-12-26] MEDS: INSULIN HUMULIN R 100 UNIT/ML 3ML SQ SCH ×4 (06:00→17:39)
[2021-12-26 07:30] VITALS: BP 100/74
[2021-12-26] MEDS: CEFTRIAXONE 1G VIAL IVP SCH (09:57)
[2021-12-26] MEDS: CYANOCOBALAMIN (VITAMIN B-12) 100 MCG TABLET PO SCH (09:57)
[2021-12-26] MEDS: FOLIC ACID 1 MG TABLET PO SCH (09:57)
[2021-12-26] MEDS: ATORVASTATIN 40 MG TABLET PO SCH (09:58)
[2021-12-26] MEDS: AMIODARONE 200 MG TABLET PO SCH (09:58)
[2021-12-26] MEDS: CITALOPRAM 20 MG TABLET PO SCH (09:58)
[2021-12-26] MEDS: METOPROLOL TARTRATE 50 MG TAB PO SCH ×2 (09:58→21:32)
[2021-12-26] MEDS: LEVETIRACETAM 750 MG in 0.9%NACL 100ML 100 ML IV SCH ×2 (10:01→21:35)
[2021-12-26 12:00] VITALS: BP 143/71
[2021-12-26] MEDS: MAGNESIUM 2GM PREMIX 50ML 50 ML IV SCH (12:31)
[2021-12-26 16:00] VITALS: BP 106/52
[2021-12-26 20:37] VITALS: BP 110/68
[2021-12-26] MEDS: OLANZAPINE ODT 5 MG TAB SL SCH (21:33)
[2021-12-27] MEDS: FUROSEMIDE 40MG VIAL IV SCH ×4 (01:49→17:11)
[2021-12-27 03:50] VITALS: BP 110/49
[2021-12-27] MEDS: INSULIN HUMULIN R 100 UNIT/ML 3ML SQ SCH ×4 (05:45→17:08)
[2021-12-27 08:00] VITALS: BP 97/46
[2021-12-27] MEDS: METOPROLOL TARTRATE 50 MG TAB PO SCH ×2 (09:00→22:21)
[2021-12-27] MEDS: CYANOCOBALAMIN (VITAMIN B-12) 100 MCG TABLET PO SCH (09:03)
[2021-12-27] MEDS: CITALOPRAM 20 MG TABLET PO SCH (09:03)
[2021-12-27] MEDS: ATORVASTATIN 40 MG TABLET PO SCH (09:03)
[2021-12-27] MEDS: CEFTRIAXONE 1G VIAL IVP SCH (09:03)
[2021-12-27] MEDS: CHLORHEXIDINE GLUCONATE 473 ML MOUTHWASH MM SCH ×2 (09:04→22:22)
[2021-12-27] MEDS: AMIODARONE 200 MG TABLET PO SCH (09:04)
[2021-12-27] MEDS: FOLIC ACID 1 MG TABLET PO SCH (09:04)
[2021-12-27] MEDS: BALSAM PERU/CASTOR OIL 60 GM TUBE TP SCH ×3 (09:05→22:22)
[2021-12-27] MEDS: LEVETIRACETAM 750 MG in 0.9%NACL 100ML 100 ML IV SCH ×2 (09:05→22:22)
[2021-12-27 12:00] VITALS: BP 111/43
[2021-12-27] MEDS: 1/2 NS 1000ML 1,000 ML IV SCH ×2 (12:57→15:30)
[2021-12-27 14:21] LABS: HEMATOCRIT 23.8 % (36-48); MEAN CORPUSCULAR HEMOGLOBIN 27.7 pg (27.0-33.0); MEAN CORPUSCULAR HGB CONC 30.3 g/dL (32.0-36.0); MEAN CORPUSCULAR VOLUME 91.5 fL (79-99); RED BLOOD CELL COUNT(AUTO) 2.6 MIL/uL (4.00-5.50); RED CELL DISTRIBUTION WIDTH 15.2 % (11.0-15.5); WHITE BLOOD COUNT (AUTO) 7.7 K/uL (4.8-10.8)
[2021-12-27 16:00] VITALS: BP 115/49
[2021-12-27] MEDS: HYDROXYZINE 25 MG TABLET PO PRN (18:37)
[2021-12-27 20:00] VITALS: BP 141/57
[2021-12-27] MEDS: TORSEMIDE 20 MG TAB PO SCH (22:21)
[2021-12-27] MEDS: OLANZAPINE ODT 5 MG TAB SL SCH (22:21)
[2021-12-27] MEDS: CLONAZEPAM 1MG TAB PO PRN (22:24)
[2021-12-27] MEDS: ACETAMINOPHEN 325 MG TAB PO PRN (22:25)
[2021-12-28] VITALS: BP 105/53
[2021-12-28 03:57] LABS: HEMATOCRIT 24.1 % (36-48); MEAN CORPUSCULAR HEMOGLOBIN 27.8 pg (27.0-33.0); MEAN CORPUSCULAR HGB CONC 30.3 g/dL (32.0-36.0); MEAN CORPUSCULAR VOLUME 91.6 fL (79-99); RED BLOOD CELL COUNT(AUTO) 2.63 MIL/uL (4.00-5.50); RED CELL DISTRIBUTION WIDTH 15.7 % (11.0-15.5); WHITE BLOOD COUNT (AUTO) 7.4 K/uL (4.8-10.8)
[2021-12-28 04:00] VITALS: BP 134/68
[2021-12-28 04:14] LABS: CREATININE 1.7 mg/dL (0.5-1.5)
[2021-12-28 04:24] LABS: POTASSIUM 2.9 mmol/L (3.5-5.1)
[2021-12-28] MEDS: POTASSIUM CHLORIDE 10% ELIXIR 20 MEQ/15 ML UDCUP PO PRN ×3 (04:39→16:58)
[2021-12-28] MEDS: INSULIN HUMULIN R 100 UNIT/ML 3ML SQ SCH ×4 (06:00→23:41)
[2021-12-28] MEDS: CYANOCOBALAMIN (VITAMIN B-12) 100 MCG TABLET PO SCH (07:56)
[2021-12-28] MEDS: CLONAZEPAM 1MG TAB PO PRN ×2 (07:56→15:05)
[2021-12-28] MEDS: HYDROXYZINE 25 MG TABLET PO PRN ×2 (07:56→15:05)
[2021-12-28] MEDS: FOLIC ACID 1 MG TABLET PO SCH (07:56)
[2021-12-28] MEDS: TORSEMIDE 20 MG TAB PO SCH ×2 (07:56→21:14)
[2021-12-28] MEDS: AMIODARONE 200 MG TABLET PO SCH (07:56)
[2021-12-28] MEDS: METOPROLOL TARTRATE 50 MG TAB PO SCH ×2 (07:56→21:14)
[2021-12-28] MEDS: CITALOPRAM 20 MG TABLET PO SCH (07:56)
[2021-12-28] MEDS: ATORVASTATIN 40 MG TABLET PO SCH (07:57)
[2021-12-28] MEDS: LEVETIRACETAM 750 MG in 0.9%NACL 100ML 100 ML IV SCH (07:57)
[2021-12-28] MEDS: CHLORHEXIDINE GLUCONATE 473 ML MOUTHWASH MM SCH ×2 (07:57→21:00)
[2021-12-28] MEDS: BALSAM PERU/CASTOR OIL 60 GM TUBE TP SCH ×3 (07:58→21:15)
[2021-12-28 08:00] VITALS: BP 96/62
[2021-12-28 12:48] VITALS: BP 101/45
[2021-12-28 16:00] VITALS: BP 106/44
[2021-12-28 20:00] VITALS: BP 121/51
[2021-12-28] MEDS: LEVETIRACETAM 250 MG TABLET PO SCH (21:14)
[2021-12-28] MEDS: OLANZAPINE ODT 5 MG TAB SL SCH (21:14)
[2021-12-29] VITALS (7 sets, daily range): BP systolic 98–145; BP diastolic 35–95
[2021-12-29] MEDS: INSULIN HUMULIN R 100 UNIT/ML 3ML SQ SCH ×3 (05:59→17:42)
[2021-12-29 08:00] LABS: MEAN CORPUSCULAR HEMOGLOBIN 28.4 pg (27.0-33.0); MEAN CORPUSCULAR HGB CONC 30.7 g/dL (32.0-36.0); MEAN CORPUSCULAR VOLUME 92.5 fL (79-99); PLATELET COUNT (AUTO) 224 K/uL (130-400); RED BLOOD CELL COUNT(AUTO) 2.92 MIL/uL (4.00-5.50); RED CELL DISTRIBUTION WIDTH 16.9 % (11.0-15.5); WHITE BLOOD COUNT (AUTO) 10.9 K/uL (4.8-10.8)
[2021-12-29 08:12] LABS: CREATININE 1.7 mg/dL (0.5-1.5); POTASSIUM 3.5 mmol/L (3.5-5.1)
[2021-12-29 09:01] LABS: BASOPHILS % (MANUAL) 1 % (0-2); EOSINOPHILS % (MANUAL) 5 % (1-6); LYMPHOCYTES % (MANUAL) 20 % (22-44); MAN.DIFF COMMENT-IMPRESSION MANUAL DIFFERENTIAL; MONOCYTES % (MANUAL) 3 % (2-9); PLATELET MORPHOLOGY COMMENT ADEQUATE; SEGMENTED NEUTROPHILS % 71 % (40-70)
[2021-12-29] MEDS: LEVETIRACETAM 250 MG TABLET PO SCH ×2 (09:17→22:10)
[2021-12-29] MEDS: CYANOCOBALAMIN (VITAMIN B-12) 100 MCG TABLET PO SCH (09:17)
[2021-12-29] MEDS: FOLIC ACID 1 MG TABLET PO SCH (09:17)
[2021-12-29] MEDS: ATORVASTATIN 40 MG TABLET PO SCH (09:17)
[2021-12-29] MEDS: TORSEMIDE 20 MG TAB PO SCH ×2 (09:17→22:10)
[2021-12-29] MEDS: METOPROLOL TARTRATE 50 MG TAB PO SCH ×2 (09:17→21:00)
[2021-12-29] MEDS: AMIODARONE 200 MG TABLET PO SCH (09:17)
[2021-12-29] MEDS: CITALOPRAM 20 MG TABLET PO SCH (09:17)
[2021-12-29] MEDS: BALSAM PERU/CASTOR OIL 60 GM TUBE TP SCH ×3 (09:18→22:23)
[2021-12-29] MEDS: CHLORHEXIDINE GLUCONATE 473 ML MOUTHWASH MM SCH ×2 (09:18→22:11)
[2021-12-29] MEDS ORDERED: OLANZAPINE ODT 5 MG TAB SL SCH (17:00)
[2021-12-29] MEDS: OLANZAPINE ODT 5 MG TAB SL SCH (22:10)
[2021-12-29] MEDS: LACTULOSE 20 GM/30 ML UDCUP PO SCH (22:11)
[2021-12-30] MEDS: CLONAZEPAM 1MG TAB PO PRN ×2 (01:03→14:14)
[2021-12-30 03:35] VITALS: BP 133/77
[2021-12-30] MEDS: LACTULOSE 20 GM/30 ML UDCUP PO SCH ×3 (05:40→21:56)
[2021-12-30] MEDS: INSULIN HUMULIN R 100 UNIT/ML 3ML SQ SCH ×4 (06:00→16:39)
[2021-12-30 07:53] VITALS: BP 110/56
[2021-12-30] MEDS ORDERED: OLANZAPINE ODT 5 MG TAB SL SCH (08:00)
[2021-12-30] MEDS: BALSAM PERU/CASTOR OIL 60 GM TUBE TP SCH ×3 (08:39→20:39)
[2021-12-30] MEDS: TORSEMIDE 20 MG TAB PO SCH ×2 (08:40→20:33)
[2021-12-30] MEDS: LEVETIRACETAM 250 MG TABLET PO SCH ×2 (08:40→20:34)
[2021-12-30] MEDS: METOPROLOL TARTRATE 50 MG TAB PO SCH ×2 (08:40→20:34)
[2021-12-30] MEDS: FOLIC ACID 1 MG TABLET PO SCH (08:40)
[2021-12-30] MEDS: ATORVASTATIN 40 MG TABLET PO SCH (08:40)
[2021-12-30] MEDS: CYANOCOBALAMIN (VITAMIN B-12) 100 MCG TABLET PO SCH (08:40)
[2021-12-30] MEDS: CITALOPRAM 20 MG TABLET PO SCH (08:40)
[2021-12-30] MEDS: AMIODARONE 200 MG TABLET PO SCH (08:40)
[2021-12-30] MEDS: CHLORHEXIDINE GLUCONATE 473 ML MOUTHWASH MM SCH ×2 (08:43→20:39)
[2021-12-30 16:37] VITALS: BP 109/37
[2021-12-30 19:30] VITALS: BP 103/56
[2021-12-30] MEDS: OLANZAPINE 5 MG TAB PO SCH (20:33)
[2021-12-30] MEDS: BENZTROPINE 0.5MG TAB PO SCH (20:38)
[2021-12-30] MEDS ORDERED: HALOPERIDOL 5 MG TABLET PO SCH (21:00)
[2021-12-30 23:15] VITALS: BP 122/50
[2021-12-30] MEDS: HALOPERIDOL INJ 5 MG/ML VIAL IV PRN (23:37)
[2021-12-31] MEDS: INSULIN HUMULIN R 100 UNIT/ML 3ML SQ SCH ×4 (01:04→18:07)
[2021-12-31 05:00] VITALS: BP 106/45
[2021-12-31 05:23] LABS: HEMATOCRIT 21.9 % (36-48); MEAN CORPUSCULAR HEMOGLOBIN 28.7 pg (27.0-33.0); MEAN CORPUSCULAR HGB CONC 30.1 g/dL (32.0-36.0); MEAN CORPUSCULAR VOLUME 95.2 fL (79-99); NUCLEATED RED BLOOD CELLS 0.2 % (0.0-0.19); RED BLOOD CELL COUNT(AUTO) 2.3 MIL/uL (4.00-5.50); RED CELL DISTRIBUTION WIDTH 17.9 % (11.0-15.5); WHITE BLOOD COUNT (AUTO) 10.8 K/uL (4.8-10.8)
[2021-12-31 05:47] LABS: CREATININE 2.5 mg/dL (0.5-1.5); MAGNESIUM 1.7 mg/dL (1.80-2.40)
[2021-12-31 05:56] LABS: POTASSIUM 2.8 mmol/L (3.5-5.1)
[2021-12-31 06:00] LABS: HEMATOCRIT 23.5 % (36-48)
[2021-12-31] MEDS: LACTULOSE 20 GM/30 ML UDCUP PO SCH ×3 (06:00→22:09)
[2021-12-31] MEDS: MAGNESIUM 2GM PREMIX 50ML 50 ML IV SCH (06:36)
[2021-12-31 08:00] VITALS: BP 82/40
[2021-12-31] MEDS: METOPROLOL TARTRATE 50 MG TAB PO SCH ×2 (09:00→21:00)
[2021-12-31] MEDS: AMIODARONE 200 MG TABLET PO SCH (10:35)
[2021-12-31] MEDS: CITALOPRAM 20 MG TABLET PO SCH (10:36)
[2021-12-31] MEDS: LEVETIRACETAM 250 MG TABLET PO SCH ×2 (10:36→22:09)
[2021-12-31] MEDS: ATORVASTATIN 40 MG TABLET PO SCH (10:36)
[2021-12-31] MEDS: CYANOCOBALAMIN (VITAMIN B-12) 100 MCG TABLET PO SCH (10:36)
[2021-12-31] MEDS: FOLIC ACID 1 MG TABLET PO SCH (10:36)
[2021-12-31] MEDS: CHLORHEXIDINE GLUCONATE 473 ML MOUTHWASH MM SCH ×2 (10:36→21:00)
[2021-12-31] MEDS: BALSAM PERU/CASTOR OIL 60 GM TUBE TP SCH ×3 (10:37→22:15)
[2021-12-31] MEDS: HALOPERIDOL INJ 5 MG/ML VIAL IV PRN (10:53)
[2021-12-31 12:00] VITALS: BP 114/49
[2021-12-31] MEDS: CLONAZEPAM 1MG TAB PO PRN ×2 (15:02→15:06)
[2021-12-31] MEDS: MIDODRINE HCL 5 MG TABLET PO SCH ×2 (15:02→23:38)
[2021-12-31 16:00] VITALS: BP 91/46
[2021-12-31] MEDS: ACETAMINOPHEN 325 MG TAB PO PRN (16:12)
[2021-12-31] MEDS: POTASSIUM CHLORIDE 10% ELIXIR 20 MEQ/15 ML UDCUP PO PRN ×2 (16:12→22:09)
[2021-12-31] MEDS: OLANZAPINE 5 MG TAB PO SCH (22:10)
[2021-12-31] MEDS: BENZTROPINE 0.5MG TAB PO SCH (22:10)
[2022-01-01] VITALS (7 sets, daily range): BP systolic 98–137; BP diastolic 44–83
[2022-01-01] MEDS: POTASSIUM CHLORIDE 10% ELIXIR 20 MEQ/15 ML UDCUP PO PRN (01:06)
[2022-01-01] MEDS: HALOPERIDOL INJ 5 MG/ML VIAL IV PRN (01:47)
[2022-01-01 05:44] LABS: BILIRUBIN,TOTAL 0.3 mg/dL (0.2-1.0); CREATININE 2.3 mg/dL (0.5-1.5); POTASSIUM 3.7 mmol/L (3.5-5.1); TOTAL PROTEIN, SERUM 6.5 g/dL (6.0-8.3)
[2022-01-01] MEDS: LACTULOSE 20 GM/30 ML UDCUP PO SCH ×3 (06:27→22:00)
[2022-01-01] MEDS: CITALOPRAM 20 MG TABLET PO SCH (09:01)
[2022-01-01] MEDS: AMIODARONE 200 MG TABLET PO SCH (09:02)
[2022-01-01] MEDS: MIDODRINE HCL 5 MG TABLET PO SCH ×3 (09:02→22:15)
[2022-01-01] MEDS: ATORVASTATIN 40 MG TABLET PO SCH (09:02)
[2022-01-01] MEDS: FOLIC ACID 1 MG TABLET PO SCH (09:02)
[2022-01-01] MEDS: METOPROLOL TARTRATE 50 MG TAB PO SCH ×2 (09:02→21:00)
[2022-01-01] MEDS: CYANOCOBALAMIN (VITAMIN B-12) 100 MCG TABLET PO SCH (09:02)
[2022-01-01] MEDS: LEVETIRACETAM 100 MG/ML 5 ML UDCUP PO SCH ×2 (09:06→22:16)
[2022-01-01] MEDS: ACETAMINOPHEN 325 MG TAB PO PRN ×2 (09:21→22:15)
[2022-01-01] MEDS: CLONAZEPAM 1MG TAB PO PRN ×2 (09:21→22:16)
[2022-01-01] MEDS: OLANZAPINE 5 MG TAB PO SCH ×2 (09:21→22:16)
[2022-01-01] MEDS: CHLORHEXIDINE GLUCONATE 473 ML MOUTHWASH MM SCH ×2 (09:26→22:16)
[2022-01-01] MEDS: BALSAM PERU/CASTOR OIL 60 GM TUBE TP SCH ×3 (09:26→22:17)
[2022-01-01] MEDS: INSULIN HUMULIN R 100 UNIT/ML 3ML SQ SCH ×3 (11:33→16:19)
[2022-01-01 13:17] LABS: HEMATOCRIT 22.4 % (36-48); MEAN CORPUSCULAR HEMOGLOBIN 29.1 pg (27.0-33.0); MEAN CORPUSCULAR HGB CONC 29.9 g/dL (32.0-36.0); MEAN CORPUSCULAR VOLUME 97.4 fL (79-99); RED BLOOD CELL COUNT(AUTO) 2.3 MIL/uL (4.00-5.50); RED CELL DISTRIBUTION WIDTH 19.3 % (11.0-15.5); WHITE BLOOD COUNT (AUTO) 14.3 K/uL (4.8-10.8)
[2022-01-01 14:01] LABS: CREATININE 2.4 mg/dL (0.5-1.5); POTASSIUM 3.5 mmol/L (3.5-5.1)
[2022-01-01] MEDS ORDERED: DEXAMETHASONE SOD PHOSPHATE 4 MG/ML 1ML VIAL IVP SCH (15:00)
[2022-01-01] MEDS ORDERED: DIPHENHYDRAMINE HCL 25 MG CAPSULE PO SCH (15:00)
[2022-01-01 15:17] LABS: HEMATOCRIT 23.6 % (36-48)
[2022-01-01] MEDS ORDERED: DiphenhydrAMINE HCL 50 MG/ML VIAL IV ONE (18:00)
[2022-01-01 21:02] LABS: HEMATOCRIT 26.5 % (36-48)
[2022-01-01] MEDS: BENZTROPINE 0.5MG TAB PO SCH (22:16)
[2022-01-02] MEDS: INSULIN HUMULIN R 100 UNIT/ML 3ML SQ SCH ×3 (01:36→12:00)
[2022-01-02 04:05] VITALS: BP 113/50
[2022-01-02 05:05] LABS: BASOPHILS % (AUTO) 0.2 % (0.0-5.0); HEMATOCRIT 28.8 % (36-48); LYMPHOCYTES % (AUTO) 12.2 % (21.0-51.0); MEAN CORPUSCULAR HEMOGLOBIN 29.7 pg (27.0-33.0); MEAN CORPUSCULAR HGB CONC 30.9 g/dL (32.0-36.0); MONOCYTES % (AUTO) 0.9 % (3.0-13.0); NEUTROPHILS % (AUTO) 86.1 % (40.0-77.0); PLATELET COUNT (AUTO) 299 K/uL (130-400); RED CELL DISTRIBUTION WIDTH 17.8 % (11.0-15.5); WHITE BLOOD COUNT (AUTO) 12.2 K/uL (4.8-10.8)
[2022-01-02 05:27] LABS: ALBUMIN 2.1 g/dL (3.5-5.0); BILIRUBIN,TOTAL 0.3 mg/dL (0.2-1.0); CREATININE 2.3 mg/dL (0.5-1.5); MAGNESIUM 2.2 mg/dL (1.80-2.40); POTASSIUM 3.8 mmol/L (3.5-5.1)
[2022-01-02] MEDS: HALOPERIDOL INJ 5 MG/ML VIAL IV PRN ×2 (06:22→13:56)
[2022-01-02] MEDS: LACTULOSE 20 GM/30 ML UDCUP PO SCH ×3 (06:22→22:00)
[2022-01-02 08:00] VITALS: BP 145/66
[2022-01-02] MEDS: MIDODRINE HCL 5 MG TABLET PO SCH ×3 (09:00→22:44)
[2022-01-02] MEDS: CLONAZEPAM 1MG TAB PO PRN ×2 (09:01→20:45)
[2022-01-02] MEDS: ATORVASTATIN 40 MG TABLET PO SCH (09:01)
[2022-01-02] MEDS: CITALOPRAM 20 MG TABLET PO SCH (09:01)
[2022-01-02] MEDS: FOLIC ACID 1 MG TABLET PO SCH (09:01)
[2022-01-02] MEDS: METOPROLOL TARTRATE 50 MG TAB PO SCH ×2 (09:01→21:00)
[2022-01-02] MEDS: OLANZAPINE 5 MG TAB PO SCH ×2 (09:01→20:46)
[2022-01-02] MEDS: AMIODARONE 200 MG TABLET PO SCH (09:01)
[2022-01-02] MEDS: LEVETIRACETAM 100 MG/ML 5 ML UDCUP PO SCH ×2 (09:02→20:46)
[2022-01-02] MEDS: CHLORHEXIDINE GLUCONATE 473 ML MOUTHWASH MM SCH ×2 (09:09→20:43)
[2022-01-02] MEDS: BALSAM PERU/CASTOR OIL 60 GM TUBE TP SCH ×3 (09:09→20:44)
[2022-01-02] MEDS: CYANOCOBALAMIN (VITAMIN B-12) 100 MCG TABLET PO SCH (09:53)
[2022-01-02 11:55] VITALS: BP 111/61
[2022-01-02 14:05] LABS: HEMATOCRIT 28.6 % (36-48)
[2022-01-02 16:00] VITALS: BP 138/68
[2022-01-02 20:00] VITALS: BP 102/43
[2022-01-02] MEDS: ACETAMINOPHEN 325 MG TAB PO PRN (20:45)
[2022-01-02] MEDS: BENZTROPINE 0.5MG TAB PO SCH (20:46)
[2022-01-02 20:55] LABS: HEMATOCRIT 31.2 % (36-48)
[2022-01-02 23:56] VITALS: BP 110/47
[2022-01-03] MEDS: INSULIN HUMULIN R 100 UNIT/ML 3ML SQ SCH ×4 (01:48→18:00)
[2022-01-03 04:00] VITALS: BP 151/54
[2022-01-03 04:42] LABS: HEMATOCRIT 28.3 % (36-48); MEAN CORPUSCULAR HEMOGLOBIN 28.7 pg (27.0-33.0); MEAN CORPUSCULAR HGB CONC 30.7 g/dL (32.0-36.0); MEAN CORPUSCULAR VOLUME 93.4 fL (79-99); RED BLOOD CELL COUNT(AUTO) 3.03 MIL/uL (4.00-5.50); RED CELL DISTRIBUTION WIDTH 18.1 % (11.0-15.5); WHITE BLOOD COUNT (AUTO) 20.5 K/uL (4.8-10.8)
[2022-01-03 05:07] LABS: ALBUMIN 2.2 g/dL (3.5-5.0); BILIRUBIN,TOTAL 0.4 mg/dL (0.2-1.0); CREATININE 1.9 mg/dL (0.5-1.5); POTASSIUM 3.4 mmol/L (3.5-5.1); TOTAL PROTEIN, SERUM 6.9 g/dL (6.0-8.3)
[2022-01-03] MEDS: LACTULOSE 20 GM/30 ML UDCUP PO SCH ×3 (05:54→22:00)
[2022-01-03 08:00] VITALS: BP 125/67
[2022-01-03] MEDS: HALOPERIDOL INJ 5 MG/ML VIAL IV PRN ×3 (09:30→21:57)
[2022-01-03] MEDS: ATORVASTATIN 40 MG TABLET PO SCH (10:18)
[2022-01-03] MEDS: CYANOCOBALAMIN (VITAMIN B-12) 100 MCG TABLET PO SCH (10:19)
[2022-01-03] MEDS: FOLIC ACID 1 MG TABLET PO SCH (10:19)
[2022-01-03] MEDS: AMIODARONE 200 MG TABLET PO SCH (10:19)
[2022-01-03] MEDS: OLANZAPINE 5 MG TAB PO SCH ×2 (10:19→20:04)
[2022-01-03] MEDS: CHLORHEXIDINE GLUCONATE 473 ML MOUTHWASH MM SCH ×2 (10:20→20:31)
[2022-01-03] MEDS: CITALOPRAM 20 MG TABLET PO SCH (10:20)
[2022-01-03] MEDS: MIDODRINE HCL 5 MG TABLET PO SCH ×3 (10:20→21:00)
[2022-01-03] MEDS: METOPROLOL TARTRATE 50 MG TAB PO SCH ×2 (10:20→20:04)
[2022-01-03] MEDS: BALSAM PERU/CASTOR OIL 60 GM TUBE TP SCH ×3 (10:20→20:31)
[2022-01-03] MEDS: LEVETIRACETAM 100 MG/ML 5 ML UDCUP PO SCH ×2 (10:21→20:05)
[2022-01-03 12:00] VITALS: BP 109/77
[2022-01-03 13:59] LABS: HEMATOCRIT 28.7 % (36-48)
[2022-01-03] MEDS: ZOSYN 3.375GM +NS 50ML IV SCH (15:24)
[2022-01-03 16:00] VITALS: BP 101/56
[2022-01-03 18:13] LABS: BILIRUBIN,URINE Negative (NEGATIVE); COLOR,URINE Yellow (YELLOW); GLUCOSE, URINE (UA) Negative (NEGATIVE); KETONES,URINE Negative (NEGATIVE); LEUKOCYTE ESTERASE ,URINE Large (NEGATIVE); NITRATE,URINE Negative (NEGATIVE); OCCULT BLOOD,URINE Moderate (NEGATIVE); PROTEIN,URINE POS 2+ mg/dL (NEGATIVE)
[2022-01-03 18:14] LABS: APPEARANCE,URINE CLOUDY (CLEAR)
[2022-01-03 18:19] LABS: WBC,URINE 51-100 /HPF (0-1)
[2022-01-03 18:20] LABS: BACTERIA,URINE Few /HPF (None Seen); SQUAMOUS EPITHELIAL CELL,UR Rare /HPF (0-2)
[2022-01-03] MEDS: POTASSIUM CHLORIDE 10% ELIXIR 20 MEQ/15 ML UDCUP PO PRN ×2 (18:27→20:30)
[2022-01-03 20:01] VITALS: BP 118/34
[2022-01-03] MEDS: CLONAZEPAM 1MG TAB PO PRN (20:04)
[2022-01-03 20:19] LABS: HEMATOCRIT 29.5 % (36-48)
[2022-01-03] MEDS ORDERED: NEOMY SULF/BACITRA/POLYMYXIN B 1 EACH PACKET TP ONE (20:40)
[2022-01-03] MEDS: BENZTROPINE 0.5MG TAB PO SCH (21:00)
[2022-01-03 23:26] VITALS: BP 137/63
[2022-01-04] VITALS (9 sets, daily range): BP systolic 95–140; BP diastolic 48–74
[2022-01-04] MEDS: INSULIN HUMULIN R 100 UNIT/ML 3ML SQ SCH ×5 (00:23→23:19)
[2022-01-04] MEDS: ZOSYN 3.375GM +NS 50ML IV SCH (03:17)
[2022-01-04 04:51] LABS: BASOPHILS % (AUTO) 0.4 % (0.0-5.0); EOSINOPHILS % (AUTO) 1.9 % (0.0-8.0); HEMATOCRIT 29.9 % (36-48); LYMPHOCYTES % (AUTO) 18.7 % (21.0-51.0); MEAN CORPUSCULAR HEMOGLOBIN 30.1 pg (27.0-33.0); MEAN CORPUSCULAR HGB CONC 31.4 g/dL (32.0-36.0); MEAN CORPUSCULAR VOLUME 95.8 fL (79-99); MONOCYTES % (AUTO) 8.4 % (3.0-13.0); NEUTROPHILS % (AUTO) 69.9 % (40.0-77.0); PLATELET COUNT (AUTO) 401 K/uL (130-400); RED BLOOD CELL COUNT(AUTO) 3.12 MIL/uL (4.00-5.50); RED CELL DISTRIBUTION WIDTH 18.6 % (11.0-15.5); WHITE BLOOD COUNT (AUTO) 23.5 K/uL (4.8-10.8)
[2022-01-04 05:11] LABS: ALBUMIN 2.3 g/dL (3.5-5.0); BILIRUBIN,TOTAL 0.5 mg/dL (0.2-1.0); CREATININE 1.7 mg/dL (0.5-1.5); PHOSPHORUS 3.5 mg/dL (2.5-4.9); POTASSIUM 3.6 mmol/L (3.5-5.1); TOTAL PROTEIN, SERUM 7.4 g/dL (6.0-8.3)
[2022-01-04] MEDS: LACTULOSE 20 GM/30 ML UDCUP PO SCH ×3 (06:00→19:53)
[2022-01-04] MEDS: OLANZAPINE 5 MG TAB PO SCH ×2 (08:00→19:53)
[2022-01-04] MEDS: LEVETIRACETAM 100 MG/ML 5 ML UDCUP PO SCH ×2 (08:44→19:53)
[2022-01-04] MEDS: AMIODARONE 200 MG TABLET PO SCH (08:44)
[2022-01-04] MEDS: BALSAM PERU/CASTOR OIL 60 GM TUBE TP SCH ×3 (08:44→19:55)
[2022-01-04] MEDS: CITALOPRAM 20 MG TABLET PO SCH (08:44)
[2022-01-04] MEDS: FOLIC ACID 1 MG TABLET PO SCH (08:44)
[2022-01-04] MEDS: ATORVASTATIN 40 MG TABLET PO SCH (08:44)
[2022-01-04] MEDS: METOPROLOL TARTRATE 50 MG TAB PO SCH ×2 (08:44→19:53)
[2022-01-04] MEDS: CHLORHEXIDINE GLUCONATE 473 ML MOUTHWASH MM SCH ×2 (08:44→19:55)
[2022-01-04] MEDS: MIDODRINE HCL 5 MG TABLET PO SCH ×3 (08:45→19:54)
[2022-01-04] MEDS: CYANOCOBALAMIN (VITAMIN B-12) 100 MCG TABLET PO SCH (08:45)
[2022-01-04 09:05] LABS: HEMATOCRIT 27.5 % (36-48)
[2022-01-04] MEDS ORDERED: VANCOMYCIN PROTOCOL PER PHARMACY IV SCH (11:00)
[2022-01-04] MEDS ORDERED: PROPOFOL 10 MG/ML 20ML VIAL IV ONE ×2 (12:34→12:46)
[2022-01-04] MEDS ORDERED: CEFAZOLIN SODIUM 1 GM VIAL ONE (12:48)
[2022-01-04] MEDS ORDERED: VANCOMYCIN 1.5 GM/250 ML BAG 250 ML IV ONE (13:30)
[2022-01-04] MEDS: HALOPERIDOL INJ 5 MG/ML VIAL IV PRN (13:55)
[2022-01-04] MEDS: MEROPENEM 1 GM VIAL IVP SCH ×2 (13:57→23:26)
[2022-01-04 14:33] LABS: HEMATOCRIT 29.5 % (36-48)
[2022-01-04] MEDS ORDERED: HALOPERIDOL INJ 5 MG/ML VIAL IV SCH (17:00)
[2022-01-04] MEDS: BENZTROPINE 0.5MG TAB PO SCH (19:53)
[2022-01-04 20:51] LABS: HEMATOCRIT 28.1 % (36-48)
[2022-01-05 03:57] VITALS: BP 133/71
[2022-01-05 04:32] LABS: BASOPHILS % (AUTO) 0.4 % (0.0-5.0); EOSINOPHILS % (AUTO) 1.5 % (0.0-8.0); HEMATOCRIT 27.9 % (36-48); LYMPHOCYTES % (AUTO) 13.5 % (21.0-51.0); MEAN CORPUSCULAR HEMOGLOBIN 29.7 pg (27.0-33.0); MEAN CORPUSCULAR HGB CONC 31.2 g/dL (32.0-36.0); MEAN CORPUSCULAR VOLUME 95.2 fL (79-99); MONOCYTES % (AUTO) 6.1 % (3.0-13.0); NEUTROPHILS % (AUTO) 77.9 % (40.0-77.0); PLATELET COUNT (AUTO) 298 K/uL (130-400); RED BLOOD CELL COUNT(AUTO) 2.93 MIL/uL (4.00-5.50); RED CELL DISTRIBUTION WIDTH 18.4 % (11.0-15.5); WHITE BLOOD COUNT (AUTO) 17.4 K/uL (4.8-10.8)
[2022-01-05 04:55] LABS: ALBUMIN 2.3 g/dL (3.5-5.0); BILIRUBIN,TOTAL 0.6 mg/dL (0.2-1.0); CREATININE 1.7 mg/dL (0.5-1.5); MAGNESIUM 1.8 mg/dL (1.80-2.40); PHOSPHORUS 3.3 mg/dL (2.5-4.9); POTASSIUM 3.9 mmol/L (3.5-5.1); TOTAL PROTEIN, SERUM 6.9 g/dL (6.0-8.3)
[2022-01-05] MEDS: LACTULOSE 20 GM/30 ML UDCUP PO SCH ×3 (05:23→22:23)
[2022-01-05] MEDS: INSULIN HUMULIN R 100 UNIT/ML 3ML SQ SCH ×3 (05:23→18:52)
[2022-01-05] MEDS: HALOPERIDOL INJ 5 MG/ML VIAL IV PRN ×2 (07:46→14:23)
[2022-01-05 08:00] VITALS: BP 133/51
[2022-01-05] MEDS: AMIODARONE 200 MG TABLET PO SCH (08:49)
[2022-01-05] MEDS: LEVETIRACETAM 100 MG/ML 5 ML UDCUP PO SCH ×2 (08:49→21:38)
[2022-01-05] MEDS: METOPROLOL TARTRATE 50 MG TAB PO SCH ×2 (08:49→21:39)
[2022-01-05] MEDS: MIDODRINE HCL 5 MG TABLET PO SCH ×3 (08:50→21:39)
[2022-01-05] MEDS: ATORVASTATIN 40 MG TABLET PO SCH (08:50)
[2022-01-05] MEDS: CYANOCOBALAMIN (VITAMIN B-12) 100 MCG TABLET PO SCH (08:50)
[2022-01-05] MEDS: CITALOPRAM 20 MG TABLET PO SCH (08:50)
[2022-01-05] MEDS: OLANZAPINE 5 MG TAB PO SCH ×2 (08:50→22:11)
[2022-01-05] MEDS: FOLIC ACID 1 MG TABLET PO SCH (08:50)
[2022-01-05] MEDS: 0.9% NACL 250ML 250 ML IV SCH (08:51)
[2022-01-05] MEDS: VANCOMYCIN 750MG VIAL IVPB SCH (08:51)
[2022-01-05] MEDS: CLONAZEPAM 1MG TAB PO PRN ×2 (08:55→17:38)
[2022-01-05] MEDS: BALSAM PERU/CASTOR OIL 60 GM TUBE TP SCH ×3 (09:17→22:13)
[2022-01-05] MEDS: CHLORHEXIDINE GLUCONATE 473 ML MOUTHWASH MM SCH ×2 (09:18→22:13)
[2022-01-05 10:04] LABS: HEMATOCRIT 26.7 % (36-48)
[2022-01-05 12:00] VITALS: BP 104/31
[2022-01-05] MEDS: MEROPENEM 1 GM VIAL IVP SCH (12:42)
[2022-01-05 14:00] LABS: HEMATOCRIT 28.3 % (36-48)
[2022-01-05 16:00] VITALS: BP 130/85
[2022-01-05 20:00] VITALS: BP 115/53
[2022-01-05 20:47] LABS: HEMATOCRIT 26.8 % (36-48)
[2022-01-05] MEDS: BENZTROPINE 0.5MG TAB PO SCH (22:11)
[2022-01-06] VITALS: BP 133/93
[2022-01-06] MEDS: CLONAZEPAM 1MG TAB PO PRN ×3 (00:48→19:01)
[2022-01-06] MEDS: HALOPERIDOL INJ 5 MG/ML VIAL IV PRN ×2 (02:14→13:09)
[2022-01-06] MEDS: MEROPENEM 1 GM VIAL IVP SCH (02:25)
[2022-01-06 04:00] VITALS: BP 107/70
[2022-01-06] MEDS: LACTULOSE 20 GM/30 ML UDCUP PO SCH ×3 (06:00→22:00)
[2022-01-06] MEDS: INSULIN HUMULIN R 100 UNIT/ML 3ML SQ SCH ×4 (06:00→18:07)
[2022-01-06] MEDS: HYDROXYZINE 25 MG TABLET PO PRN (06:15)
[2022-01-06 07:56] LABS: BASOPHILS % (AUTO) 0.5 % (0.0-5.0); EOSINOPHILS % (AUTO) 2.9 % (0.0-8.0); HEMATOCRIT 30.7 % (36-48); LYMPHOCYTES % (AUTO) 12.7 % (21.0-51.0); MEAN CORPUSCULAR HEMOGLOBIN 30.2 pg (27.0-33.0); MEAN CORPUSCULAR HGB CONC 31.9 g/dL (32.0-36.0); MEAN CORPUSCULAR VOLUME 94.5 fL (79-99); MONOCYTES % (AUTO) 4.6 % (3.0-13.0); NEUTROPHILS % (AUTO) 78.7 % (40.0-77.0); PLATELET COUNT (AUTO) 271 K/uL (130-400); RED BLOOD CELL COUNT(AUTO) 3.25 MIL/uL (4.00-5.50); RED CELL DISTRIBUTION WIDTH 18.2 % (11.0-15.5); WHITE BLOOD COUNT (AUTO) 15.4 K/uL (4.8-10.8)
[2022-01-06 08:00] VITALS: BP 123/56
[2022-01-06 08:11] LABS: CREATININE 1.5 mg/dL (0.5-1.5); POTASSIUM 3.5 mmol/L (3.5-5.1)
[2022-01-06] MEDS: CITALOPRAM 20 MG TABLET PO SCH (08:56)
[2022-01-06] MEDS: CYANOCOBALAMIN (VITAMIN B-12) 100 MCG TABLET PO SCH (08:56)
[2022-01-06] MEDS: FOLIC ACID 1 MG TABLET PO SCH (08:56)
[2022-01-06] MEDS: ATORVASTATIN 40 MG TABLET PO SCH (08:56)
[2022-01-06] MEDS: METOPROLOL TARTRATE 50 MG TAB PO SCH ×2 (08:56→21:00)
[2022-01-06] MEDS: AMIODARONE 200 MG TABLET PO SCH (08:56)
[2022-01-06] MEDS: MIDODRINE HCL 5 MG TABLET PO SCH ×3 (08:56→22:27)
[2022-01-06] MEDS: LEVETIRACETAM 100 MG/ML 5 ML UDCUP PO SCH ×2 (08:56→22:21)
[2022-01-06] MEDS: OLANZAPINE 5 MG TAB PO SCH ×2 (08:57→22:21)
[2022-01-06] MEDS: CHLORHEXIDINE GLUCONATE 473 ML MOUTHWASH MM SCH ×2 (08:58→22:27)
[2022-01-06] MEDS: BALSAM PERU/CASTOR OIL 60 GM TUBE TP SCH ×3 (08:59→22:28)
[2022-01-06] MEDS: 0.9% NACL 250ML 250 ML IV SCH (10:12)
[2022-01-06] MEDS: POTASSIUM CHLORIDE 10% ELIXIR 20 MEQ/15 ML UDCUP PO PRN (10:12)
[2022-01-06] MEDS: VANCOMYCIN 750MG VIAL IVPB SCH (10:14)
[2022-01-06 11:26] VITALS: BP 108/54
[2022-01-06] MEDS: ZOSYN 3.375GM +NS 50ML IV SCH ×2 (13:55→22:20)
[2022-01-06 16:00] VITALS: BP 129/53
[2022-01-06 20:00] VITALS: BP 101/41
[2022-01-06] MEDS: BENZTROPINE 0.5MG TAB PO SCH (22:21)
[2022-01-07] VITALS: BP 118/41
[2022-01-07 04:00] VITALS: BP 149/84
[2022-01-07 05:41] LABS: HEMATOCRIT 29.1 % (36-48); MEAN CORPUSCULAR HGB CONC 30.2 g/dL (32.0-36.0); RED BLOOD CELL COUNT(AUTO) 3.03 MIL/uL (4.00-5.50); RED CELL DISTRIBUTION WIDTH 17.7 % (11.0-15.5); WHITE BLOOD COUNT (AUTO) 15.4 K/uL (4.8-10.8)
[2022-01-07 06:00] LABS: CREATININE 1.3 mg/dL (0.5-1.5); MAGNESIUM 1.8 mg/dL (1.80-2.40); POTASSIUM 4.7 mmol/L (3.5-5.1)
[2022-01-07] MEDS: LACTULOSE 20 GM/30 ML UDCUP PO SCH ×2 (06:00→14:00)
[2022-01-07] MEDS: INSULIN HUMULIN R 100 UNIT/ML 3ML SQ SCH ×4 (06:00→18:00)
[2022-01-07] MEDS: ZOSYN 3.375GM +NS 50ML IV SCH ×3 (06:26→21:58)
[2022-01-07 08:00] VITALS: BP 141/74
[2022-01-07] MEDS: CLONAZEPAM 1MG TAB PO PRN ×2 (08:14→18:06)
[2022-01-07] MEDS: 0.9% NACL 250ML 250 ML IV SCH (09:00)
[2022-01-07] MEDS: CYANOCOBALAMIN (VITAMIN B-12) 100 MCG TABLET PO SCH (09:21)
[2022-01-07] MEDS: METOPROLOL TARTRATE 50 MG TAB PO SCH (09:21)
[2022-01-07] MEDS: CITALOPRAM 20 MG TABLET PO SCH (09:21)
[2022-01-07] MEDS: MIDODRINE HCL 5 MG TABLET PO SCH ×3 (09:21→21:58)
[2022-01-07] MEDS: LEVETIRACETAM 100 MG/ML 5 ML UDCUP PO SCH ×2 (09:21→21:58)
[2022-01-07] MEDS: FOLIC ACID 1 MG TABLET PO SCH (09:21)
[2022-01-07] MEDS: ATORVASTATIN 40 MG TABLET PO SCH (09:21)
[2022-01-07] MEDS: AMIODARONE 200 MG TABLET PO SCH (09:21)
[2022-01-07] MEDS: OLANZAPINE ODT 5 MG TAB SL PRN (09:24)
[2022-01-07] MEDS: CHLORHEXIDINE GLUCONATE 473 ML MOUTHWASH MM SCH ×2 (09:29→22:04)
[2022-01-07] MEDS: OLANZAPINE 5 MG TAB PO SCH ×2 (09:29→21:58)
[2022-01-07] MEDS: BALSAM PERU/CASTOR OIL 60 GM TUBE TP SCH ×3 (09:30→22:08)
[2022-01-07 12:00] VITALS: BP 120/49
[2022-01-07 12:07] LABS: INR 1.04 (0.85-1.15); PROTHROMBIN TIME 11.3 SEC (9.6-11.6)
[2022-01-07] MEDS ORDERED: HALOPERIDOL INJ 5 MG/ML VIAL IM SCH (15:00)
[2022-01-07 16:00] VITALS: BP 138/54
[2022-01-07 20:00] VITALS: BP 127/56
[2022-01-07] MEDS: BENZTROPINE 0.5MG TAB PO SCH (21:58)
[2022-01-08] VITALS (7 sets, daily range): BP systolic 107–131; BP diastolic 40–91
[2022-01-08] MEDS: METOPROLOL TARTRATE 50 MG TAB PO SCH ×3 (00:58→21:34)
[2022-01-08] MEDS: INSULIN HUMULIN R 100 UNIT/ML 3ML SQ SCH ×4 (01:02→18:00)
[2022-01-08] MEDS: LACTULOSE 20 GM/30 ML UDCUP PO SCH ×4 (01:04→23:02)
[2022-01-08] MEDS: ZOSYN 3.375GM +NS 50ML IV SCH ×3 (05:20→21:33)
[2022-01-08 08:47] LABS: ALBUMIN 2.1 g/dL (3.5-5.0); BILIRUBIN,TOTAL 0.6 mg/dL (0.2-1.0); CREATININE 1.4 mg/dL (0.5-1.5); MAGNESIUM 1.8 mg/dL (1.80-2.40); POTASSIUM 3.7 mmol/L (3.5-5.1); TOTAL PROTEIN, SERUM 6.1 g/dL (6.0-8.3)
[2022-01-08] MEDS: MIDODRINE HCL 5 MG TABLET PO SCH ×3 (09:20→21:33)
[2022-01-08] MEDS: CYANOCOBALAMIN (VITAMIN B-12) 100 MCG TABLET PO SCH (09:20)
[2022-01-08] MEDS: ATORVASTATIN 40 MG TABLET PO SCH (09:20)
[2022-01-08] MEDS: AMIODARONE 200 MG TABLET PO SCH (09:21)
[2022-01-08] MEDS: CITALOPRAM 20 MG TABLET PO SCH (09:21)
[2022-01-08] MEDS: LEVETIRACETAM 100 MG/ML 5 ML UDCUP PO SCH ×2 (09:21→21:33)
[2022-01-08] MEDS: FOLIC ACID 1 MG TABLET PO SCH (09:21)
[2022-01-08] MEDS: OLANZAPINE 5 MG TAB PO SCH ×2 (09:23→21:33)
[2022-01-08] MEDS: BALSAM PERU/CASTOR OIL 60 GM TUBE TP SCH ×3 (09:24→22:16)
[2022-01-08] MEDS: CHLORHEXIDINE GLUCONATE 473 ML MOUTHWASH MM SCH ×2 (09:24→22:17)
[2022-01-08] MEDS: PHARMACY COMMUNICATION MISC SCH (21:00)
[2022-01-08] MEDS: SAPHRIS 5 MG SL SCH (21:00)
[2022-01-08] MEDS: BENZTROPINE 0.5MG TAB PO SCH (21:35)
[2022-01-08] MEDS: CLONAZEPAM 1MG TAB PO PRN (21:36)
[2022-01-09] VITALS (7 sets, daily range): BP systolic 96–138; BP diastolic 40–79
[2022-01-09] MEDS: ZOSYN 3.375GM +NS 50ML IV SCH ×3 (05:48→22:14)
[2022-01-09] MEDS: LACTULOSE 20 GM/30 ML UDCUP PO SCH ×3 (05:48→21:06)
[2022-01-09] MEDS: INSULIN HUMULIN R 100 UNIT/ML 3ML SQ SCH ×4 (05:55→18:00)
[2022-01-09 07:10] LABS: BASOPHILS % (AUTO) 0.3 % (0.0-5.0); EOSINOPHILS % (AUTO) 1.4 % (0.0-8.0); HEMATOCRIT 27.5 % (36-48); LYMPHOCYTES % (AUTO) 15.7 % (21.0-51.0); MEAN CORPUSCULAR HEMOGLOBIN 29.2 pg (27.0-33.0); MEAN CORPUSCULAR HGB CONC 30.9 g/dL (32.0-36.0); MEAN CORPUSCULAR VOLUME 94.5 fL (79-99); MONOCYTES % (AUTO) 5.1 % (3.0-13.0); NEUTROPHILS % (AUTO) 77.1 % (40.0-77.0); PLATELET COUNT (AUTO) 235 K/uL (130-400); RED BLOOD CELL COUNT(AUTO) 2.91 MIL/uL (4.00-5.50); RED CELL DISTRIBUTION WIDTH 17.7 % (11.0-15.5); WHITE BLOOD COUNT (AUTO) 15.3 K/uL (4.8-10.8)
[2022-01-09 08:13] LABS: ALBUMIN 2.1 g/dL (3.5-5.0); BILIRUBIN,TOTAL 0.6 mg/dL (0.2-1.0); CREATININE 1.3 mg/dL (0.5-1.5); PHOSPHORUS 3.3 mg/dL (2.5-4.9); POTASSIUM 3.7 mmol/L (3.5-5.1); TOTAL PROTEIN, SERUM 6.4 g/dL (6.0-8.3)
[2022-01-09] MEDS: METOPROLOL TARTRATE 50 MG TAB PO SCH ×2 (08:35→21:02)
[2022-01-09] MEDS: CITALOPRAM 20 MG TABLET PO SCH (08:35)
[2022-01-09] MEDS: OLANZAPINE 5 MG TAB PO SCH ×2 (08:35→21:02)
[2022-01-09] MEDS: FOLIC ACID 1 MG TABLET PO SCH (08:35)
[2022-01-09] MEDS: ATORVASTATIN 40 MG TABLET PO SCH (08:35)
[2022-01-09] MEDS: AMIODARONE 200 MG TABLET PO SCH (08:35)
[2022-01-09] MEDS: CYANOCOBALAMIN (VITAMIN B-12) 100 MCG TABLET PO SCH (08:35)
[2022-01-09] MEDS: MIDODRINE HCL 5 MG TABLET PO SCH ×3 (08:36→21:02)
[2022-01-09] MEDS: LEVETIRACETAM 100 MG/ML 5 ML UDCUP PO SCH ×2 (08:36→21:01)
[2022-01-09] MEDS: BALSAM PERU/CASTOR OIL 60 GM TUBE TP SCH ×2 (09:00→21:00)
[2022-01-09] MEDS: CHLORHEXIDINE GLUCONATE 473 ML MOUTHWASH MM SCH ×2 (09:00→22:13)
[2022-01-09] MEDS: SAPHRIS 5 MG SL SCH ×3 (09:00→21:00)
[2022-01-09] MEDS: PHARMACY COMMUNICATION MISC SCH ×3 (09:00→21:00)
[2022-01-09 09:42] LABS: MAGNESIUM 1.6 mg/dL (1.80-2.40)
[2022-01-09] MEDS: BENZTROPINE 0.5MG TAB PO SCH (21:02)
[2022-01-10] MEDS: HALOPERIDOL INJ 5 MG/ML VIAL IV PRN ×3 (00:03→20:40)
[2022-01-10] MEDS: ACETAMINOPHEN 325 MG TAB PO PRN (01:52)
[2022-01-10] MEDS: HYDROXYZINE 25 MG TABLET PO PRN (02:56)
[2022-01-10 04:18] VITALS: BP 107/84
[2022-01-10] MEDS: LACTULOSE 20 GM/30 ML UDCUP PO SCH ×3 (05:20→20:39)
[2022-01-10] MEDS: ZOSYN 3.375GM +NS 50ML IV SCH ×3 (05:20→20:39)
[2022-01-10] MEDS: INSULIN HUMULIN R 100 UNIT/ML 3ML SQ SCH ×4 (05:21→18:00)
[2022-01-10] MEDS: MIDODRINE HCL 5 MG TABLET PO SCH ×3 (08:25→20:40)
[2022-01-10] MEDS: OLANZAPINE 5 MG TAB PO SCH ×2 (08:25→20:39)
[2022-01-10] MEDS: ATORVASTATIN 40 MG TABLET PO SCH (08:25)
[2022-01-10] MEDS: AMIODARONE 200 MG TABLET PO SCH (08:26)
[2022-01-10] MEDS: CYANOCOBALAMIN (VITAMIN B-12) 100 MCG TABLET PO SCH (08:26)
[2022-01-10] MEDS: METOPROLOL TARTRATE 50 MG TAB PO SCH ×2 (08:26→20:40)
[2022-01-10] MEDS: FOLIC ACID 1 MG TABLET PO SCH (08:26)
[2022-01-10] MEDS: LEVETIRACETAM 100 MG/ML 5 ML UDCUP PO SCH ×2 (08:26→20:38)
[2022-01-10] MEDS: CITALOPRAM 20 MG TABLET PO SCH (08:26)
[2022-01-10] MEDS: CHLORHEXIDINE GLUCONATE 473 ML MOUTHWASH MM SCH ×2 (08:28→20:41)
[2022-01-10] MEDS: SAPHRIS 5 MG SL SCH ×3 (09:00→20:39)
[2022-01-10] MEDS: BALSAM PERU/CASTOR OIL 60 GM TUBE TP SCH ×3 (09:34→20:41)
[2022-01-10] MEDS: PHARMACY COMMUNICATION MISC SCH ×3 (09:44→20:39)
[2022-01-10] MEDS: CLONAZEPAM 1MG TAB PO PRN ×2 (11:15→23:48)
[2022-01-10 12:00] VITALS: BP 92/45
[2022-01-10] MEDS: OLANZAPINE ODT 5 MG TAB SL PRN (15:41)
[2022-01-10 16:00] VITALS: BP 162/96
[2022-01-10 20:00] VITALS: BP 93/55
[2022-01-10] MEDS: BENZTROPINE 0.5MG TAB PO SCH (20:40)
[2022-01-11] VITALS: BP 108/60
[2022-01-11 04:00] VITALS: BP 136/55
[2022-01-11] MEDS: LACTULOSE 20 GM/30 ML UDCUP PO SCH ×3 (05:28→20:46)
[2022-01-11] MEDS: ZOSYN 3.375GM +NS 50ML IV SCH ×3 (05:28→20:46)
[2022-01-11 05:39] LABS: HEMATOCRIT 27.2 % (36-48); MEAN CORPUSCULAR HEMOGLOBIN 29.6 pg (27.0-33.0); MEAN CORPUSCULAR HGB CONC 30.9 g/dL (32.0-36.0); MEAN CORPUSCULAR VOLUME 95.8 fL (79-99); RED BLOOD CELL COUNT(AUTO) 2.84 MIL/uL (4.00-5.50); RED CELL DISTRIBUTION WIDTH 18.6 % (11.0-15.5)
[2022-01-11 05:48] LABS: ALCOHOL, BLOOD < 3 mg/dL (0-10); CARBON DIOXIDE 27 mmol/L (21-32); CHLORIDE 108 mmol/L (101-111); CREATININE 1.3 mg/dL (0.5-1.5); GLOMERULAR FILTR. RATE CALC 43 mL/min (>60); GLUCOSE,RANDOM 128 mg/dL (70-105); POTASSIUM 4.4 mmol/L (3.5-5.1); SODIUM SERUM 140 mmol/L (136-145); UREA NITROGEN, BLOOD 24 mg/dL (7-18)
[2022-01-11] MEDS: MAGNESIUM 2GM PREMIX 50ML 50 ML IV SCH (05:55)
[2022-01-11] MEDS: INSULIN HUMULIN R 100 UNIT/ML 3ML SQ SCH ×4 (05:59→18:00)
[2022-01-11 08:00] VITALS: BP 119/35
[2022-01-11] MEDS: CITALOPRAM 20 MG TABLET PO SCH (08:26)
[2022-01-11] MEDS: CYANOCOBALAMIN (VITAMIN B-12) 100 MCG TABLET PO SCH (08:26)
[2022-01-11] MEDS: OLANZAPINE 5 MG TAB PO SCH ×2 (08:26→20:47)
[2022-01-11] MEDS: ATORVASTATIN 40 MG TABLET PO SCH (08:26)
[2022-01-11] MEDS: FOLIC ACID 1 MG TABLET PO SCH (08:26)
[2022-01-11] MEDS: METOPROLOL TARTRATE 50 MG TAB PO SCH ×2 (08:27→20:46)
[2022-01-11] MEDS: AMIODARONE 200 MG TABLET PO SCH (08:27)
[2022-01-11] MEDS: MIDODRINE HCL 5 MG TABLET PO SCH ×3 (08:27→20:47)
[2022-01-11] MEDS: BALSAM PERU/CASTOR OIL 60 GM TUBE TP SCH ×3 (08:27→20:47)
[2022-01-11] MEDS: CHLORHEXIDINE GLUCONATE 473 ML MOUTHWASH MM SCH ×2 (08:27→20:46)
[2022-01-11] MEDS: LEVETIRACETAM 100 MG/ML 5 ML UDCUP PO SCH ×2 (08:29→20:46)
[2022-01-11] MEDS: PHARMACY COMMUNICATION MISC SCH ×3 (09:00→20:43)
[2022-01-11] MEDS: SAPHRIS 5 MG SL SCH (11:58)
[2022-01-11 12:00] VITALS: BP 129/61
[2022-01-11 16:00] VITALS: BP 122/52
[2022-01-11 20:00] VITALS: BP 142/58
[2022-01-11] MEDS: BENZTROPINE 0.5MG TAB PO SCH (20:46)
[2022-01-12] VITALS (7 sets, daily range): BP systolic 104–140; BP diastolic 38–62
[2022-01-12] MEDS: HALOPERIDOL INJ 5 MG/ML VIAL IV PRN ×2 (03:02→13:58)
[2022-01-12] MEDS: ZOSYN 3.375GM +NS 50ML IV SCH ×3 (05:08→22:31)
[2022-01-12] MEDS: LACTULOSE 20 GM/30 ML UDCUP PO SCH ×3 (05:08→22:00)
[2022-01-12 05:16] LABS: BASOPHILS % (AUTO) 0.2 % (0.0-5.0); EOSINOPHILS % (AUTO) 1.8 % (0.0-8.0); HEMATOCRIT 24.6 % (36-48); LYMPHOCYTES % (AUTO) 14.9 % (21.0-51.0); MEAN CORPUSCULAR HEMOGLOBIN 30.6 pg (27.0-33.0); MEAN CORPUSCULAR HGB CONC 32.1 g/dL (32.0-36.0); MEAN CORPUSCULAR VOLUME 95.3 fL (79-99); MONOCYTES % (AUTO) 5.4 % (3.0-13.0); NEUTROPHILS % (AUTO) 77.3 % (40.0-77.0); PLATELET COUNT (AUTO) 193 K/uL (130-400); RED BLOOD CELL COUNT(AUTO) 2.58 MIL/uL (4.00-5.50); RED CELL DISTRIBUTION WIDTH 18.6 % (11.0-15.5); WHITE BLOOD COUNT (AUTO) 13.4 K/uL (4.8-10.8)
[2022-01-12 05:34] LABS: ALBUMIN 2.1 g/dL (3.5-5.0); BILIRUBIN,TOTAL 0.5 mg/dL (0.2-1.0); CREATININE 1.2 mg/dL (0.5-1.5); MAGNESIUM 1.9 mg/dL (1.80-2.40); POTASSIUM 4.3 mmol/L (3.5-5.1); TOTAL PROTEIN, SERUM 6.2 g/dL (6.0-8.3)
[2022-01-12] MEDS: INSULIN HUMULIN R 100 UNIT/ML 3ML SQ SCH ×2 (05:55)
[2022-01-12] MEDS: MAGNESIUM 2GM PREMIX 50ML 50 ML IV SCH (07:51)
[2022-01-12] MEDS: OLANZAPINE 5 MG TAB PO SCH ×2 (08:00→20:37)
[2022-01-12] MEDS: PHARMACY COMMUNICATION MISC SCH ×3 (09:00→21:00)
[2022-01-12] MEDS: LEVETIRACETAM 100 MG/ML 5 ML UDCUP PO SCH ×2 (09:28→20:37)
[2022-01-12] MEDS: AMIODARONE 200 MG TABLET PO SCH (09:28)
[2022-01-12] MEDS: CYANOCOBALAMIN (VITAMIN B-12) 100 MCG TABLET PO SCH (09:30)
[2022-01-12] MEDS: ATORVASTATIN 40 MG TABLET PO SCH (09:31)
[2022-01-12] MEDS: FOLIC ACID 1 MG TABLET PO SCH (09:31)
[2022-01-12] MEDS: CITALOPRAM 20 MG TABLET PO SCH (09:32)
[2022-01-12] MEDS: METOPROLOL TARTRATE 50 MG TAB PO SCH (09:34)
[2022-01-12] MEDS: MIDODRINE HCL 5 MG TABLET PO SCH ×3 (09:35→20:37)
[2022-01-12] MEDS: BALSAM PERU/CASTOR OIL 60 GM TUBE TP SCH ×3 (09:35→22:31)
[2022-01-12] MEDS: CHLORHEXIDINE GLUCONATE 473 ML MOUTHWASH MM SCH ×2 (09:36→22:31)
[2022-01-12] MEDS: OLANZAPINE ODT 5 MG TAB SL PRN (09:54)
[2022-01-12] MEDS: CLONAZEPAM 1MG TAB PO PRN ×2 (20:27→20:29)
[2022-01-12] MEDS: BENZTROPINE 0.5MG TAB PO SCH (20:37)
[2022-01-13] MEDS: HALOPERIDOL INJ 5 MG/ML VIAL IV PRN ×3 (01:17→17:57)
[2022-01-13] MEDS ORDERED: LORAZEPAM 2 MG/ML 1 ML VIAL IVP ONE (01:30)
[2022-01-13] MEDS: OLANZAPINE ODT 5 MG TAB SL PRN (04:02)
[2022-01-13 04:10] VITALS: BP 116/48
[2022-01-13] MEDS: ZOSYN 3.375GM +NS 50ML IV SCH ×3 (05:35→21:37)
[2022-01-13] MEDS: LACTULOSE 20 GM/30 ML UDCUP PO SCH ×3 (05:36→21:40)
[2022-01-13 08:00] VITALS: BP 126/66
[2022-01-13] MEDS: BALSAM PERU/CASTOR OIL 60 GM TUBE TP SCH ×3 (09:00→21:38)
[2022-01-13] MEDS: PHARMACY COMMUNICATION MISC SCH ×3 (09:00→20:52)
[2022-01-13] MEDS: CHLORHEXIDINE GLUCONATE 473 ML MOUTHWASH MM SCH ×2 (09:00→21:38)
[2022-01-13] MEDS: OLANZAPINE 5 MG TAB PO SCH ×2 (09:01→20:44)
[2022-01-13] MEDS: MIDODRINE HCL 5 MG TABLET PO SCH ×3 (09:01→20:45)
[2022-01-13] MEDS: CYANOCOBALAMIN (VITAMIN B-12) 100 MCG TABLET PO SCH (09:01)
[2022-01-13] MEDS: LEVETIRACETAM 100 MG/ML 5 ML UDCUP PO SCH ×2 (09:01→20:44)
[2022-01-13] MEDS: FOLIC ACID 1 MG TABLET PO SCH (09:01)
[2022-01-13] MEDS: AMIODARONE 200 MG TABLET PO SCH (09:01)
[2022-01-13] MEDS: CITALOPRAM 20 MG TABLET PO SCH (09:01)
[2022-01-13] MEDS: CLONAZEPAM 1MG TAB PO PRN ×2 (09:01→22:52)
[2022-01-13 11:41] VITALS: BP 143/54
[2022-01-13] MEDS ORDERED: SAPHRIS 5 MG MISC SCH (13:00)
[2022-01-13 16:00] VITALS: BP 134/68
[2022-01-13 19:30] VITALS: BP 148/75
[2022-01-13] MEDS: BENZTROPINE 0.5MG TAB PO SCH (20:44)
[2022-01-13 23:30] VITALS: BP 121/52
[2022-01-14 03:30] VITALS: BP 113/52
[2022-01-14] MEDS: ZOSYN 3.375GM +NS 50ML IV SCH ×3 (05:13→21:15)
[2022-01-14 05:16] LABS: HEMATOCRIT 21.8 % (36-48); MEAN CORPUSCULAR HEMOGLOBIN 29.5 pg (27.0-33.0); MEAN CORPUSCULAR HGB CONC 29.8 g/dL (32.0-36.0); MEAN CORPUSCULAR VOLUME 99.1 fL (79-99); RED BLOOD CELL COUNT(AUTO) 2.2 MIL/uL (4.00-5.50); RED CELL DISTRIBUTION WIDTH 19.9 % (11.0-15.5); WHITE BLOOD COUNT (AUTO) 11.5 K/uL (4.8-10.8)
[2022-01-14 05:30] LABS: CREATININE 1.4 mg/dL (0.5-1.5); POTASSIUM 4.3 mmol/L (3.5-5.1)
[2022-01-14] MEDS: LACTULOSE 20 GM/30 ML UDCUP PO SCH ×3 (06:00→22:00)
[2022-01-14 07:30] VITALS: BP 133/55
[2022-01-14] MEDS: LEVETIRACETAM 100 MG/ML 5 ML UDCUP PO SCH ×2 (09:34→20:42)
[2022-01-14] MEDS: PHARMACY COMMUNICATION MISC SCH ×3 (09:36→20:44)
[2022-01-14] MEDS: AMIODARONE 200 MG TABLET PO SCH (09:36)
[2022-01-14] MEDS: CHLORHEXIDINE GLUCONATE 473 ML MOUTHWASH MM SCH ×2 (09:36→21:13)
[2022-01-14] MEDS: OLANZAPINE 5 MG TAB PO SCH ×2 (09:36→20:42)
[2022-01-14] MEDS: CITALOPRAM 20 MG TABLET PO SCH (09:36)
[2022-01-14] MEDS: CYANOCOBALAMIN (VITAMIN B-12) 100 MCG TABLET PO SCH (09:37)
[2022-01-14] MEDS: BALSAM PERU/CASTOR OIL 60 GM TUBE TP SCH ×3 (09:37→21:13)
[2022-01-14] MEDS: FOLIC ACID 1 MG TABLET PO SCH (09:37)
[2022-01-14] MEDS: MIDODRINE HCL 5 MG TABLET PO SCH ×3 (09:37→20:43)
[2022-01-14 11:00] VITALS: BP 120/55
[2022-01-14 15:50] LABS: HEMATOCRIT 28.4 % (36-48)
[2022-01-14 16:00] VITALS: BP 131/57
[2022-01-14 20:00] VITALS: BP 155/73
[2022-01-14] MEDS: BENZTROPINE 0.5MG TAB PO SCH (20:43)
[2022-01-15] VITALS: BP 142/50
[2022-01-15 03:34] VITALS: BP 128/48
[2022-01-15 05:30] LABS: BASOPHILS % (AUTO) 0.2 % (0.0-5.0); EOSINOPHILS % (AUTO) 4.3 % (0.0-8.0); HEMATOCRIT 28.1 % (36-48); MEAN CORPUSCULAR HEMOGLOBIN 30.5 pg (27.0-33.0); MEAN CORPUSCULAR VOLUME 98.6 fL (79-99); MONOCYTES % (AUTO) 5.8 % (3.0-13.0); NEUTROPHILS % (AUTO) 72.1 % (40.0-77.0); PLATELET COUNT (AUTO) 228 K/uL (130-400); RED BLOOD CELL COUNT(AUTO) 2.85 MIL/uL (4.00-5.50); RED CELL DISTRIBUTION WIDTH 19.6 % (11.0-15.5); WHITE BLOOD COUNT (AUTO) 12.3 K/uL (4.8-10.8)
[2022-01-15] MEDS: ZOSYN 3.375GM +NS 50ML IV SCH ×3 (05:49→21:44)
[2022-01-15] MEDS: LACTULOSE 20 GM/30 ML UDCUP PO SCH ×3 (05:49→22:00)
[2022-01-15 05:59] LABS: ALBUMIN 2.1 g/dL (3.5-5.0); BILIRUBIN,TOTAL 0.5 mg/dL (0.2-1.0); CREATININE 1.1 mg/dL (0.5-1.5); TOTAL PROTEIN, SERUM 6.4 g/dL (6.0-8.3)
[2022-01-15 08:00] VITALS: BP 116/48
[2022-01-15] MEDS: CITALOPRAM 20 MG TABLET PO SCH (10:09)
[2022-01-15] MEDS: LEVETIRACETAM 100 MG/ML 5 ML UDCUP PO SCH ×2 (10:09→21:42)
[2022-01-15] MEDS: BALSAM PERU/CASTOR OIL 60 GM TUBE TP SCH ×3 (10:09→21:44)
[2022-01-15] MEDS: CHLORHEXIDINE GLUCONATE 473 ML MOUTHWASH MM SCH ×2 (10:09→21:44)
[2022-01-15] MEDS: MIDODRINE HCL 5 MG TABLET PO SCH ×3 (10:10→21:00)
[2022-01-15] MEDS: OLANZAPINE 5 MG TAB PO SCH ×2 (10:10→21:43)
[2022-01-15] MEDS: PHARMACY COMMUNICATION MISC SCH ×2 (10:17→13:07)
[2022-01-15] MEDS: HYDROXYZINE 25 MG TABLET PO PRN (11:34)
[2022-01-15 12:00] VITALS: BP 131/61
[2022-01-15] MEDS ORDERED: ALTEPLASE 2MG VIAL 2 MG/VIAL VIAL IVCATH SCH (15:00)
[2022-01-15 16:00] VITALS: BP 141/56
[2022-01-15 20:00] VITALS: BP 149/63
[2022-01-15] MEDS: BENZTROPINE 0.5MG TAB PO SCH (21:42)
[2022-01-16] VITALS: BP 138/69
[2022-01-16] MEDS: HYDROXYZINE 25 MG TABLET PO PRN ×4 (03:46→21:37)
[2022-01-16 05:23] LABS: BASOPHILS % (AUTO) 0.1 % (0.0-5.0); EOSINOPHILS % (AUTO) 2.6 % (0.0-8.0); HEMATOCRIT 27.2 % (36-48); LYMPHOCYTES % (AUTO) 10.7 % (21.0-51.0); MEAN CORPUSCULAR HEMOGLOBIN 30.1 pg (27.0-33.0); MEAN CORPUSCULAR HGB CONC 30.9 g/dL (32.0-36.0); MEAN CORPUSCULAR VOLUME 97.5 fL (79-99); MONOCYTES % (AUTO) 4.7 % (3.0-13.0); NEUTROPHILS % (AUTO) 81.3 % (40.0-77.0); PLATELET COUNT (AUTO) 216 K/uL (130-400); RED BLOOD CELL COUNT(AUTO) 2.79 MIL/uL (4.00-5.50); RED CELL DISTRIBUTION WIDTH 19.3 % (11.0-15.5); WHITE BLOOD COUNT (AUTO) 13.5 K/uL (4.8-10.8)
[2022-01-16 05:36] VITALS: BP 128/56
[2022-01-16] MEDS: LACTULOSE 20 GM/30 ML UDCUP PO SCH ×3 (05:39→21:41)
[2022-01-16] MEDS: ZOSYN 3.375GM +NS 50ML IV SCH ×3 (05:39→21:37)
[2022-01-16 05:59] LABS: BILIRUBIN,TOTAL 0.5 mg/dL (0.2-1.0); CREATININE 1.3 mg/dL (0.5-1.5); POTASSIUM 4.8 mmol/L (3.5-5.1); TOTAL PROTEIN, SERUM 6.2 g/dL (6.0-8.3)
[2022-01-16 08:00] VITALS: BP 98/35
[2022-01-16] MEDS: CITALOPRAM 20 MG TABLET PO SCH (09:14)
[2022-01-16] MEDS: LEVETIRACETAM 100 MG/ML 5 ML UDCUP PO SCH ×2 (09:14→21:37)
[2022-01-16] MEDS: CHLORHEXIDINE GLUCONATE 473 ML MOUTHWASH MM SCH ×2 (09:15→21:40)
[2022-01-16] MEDS: MIDODRINE HCL 5 MG TABLET PO SCH ×3 (09:15→21:37)
[2022-01-16] MEDS: OLANZAPINE 5 MG TAB PO SCH ×2 (09:15→21:37)
[2022-01-16] MEDS: BALSAM PERU/CASTOR OIL 60 GM TUBE TP SCH ×3 (09:15→21:38)
[2022-01-16 12:00] VITALS: BP 110/53
[2022-01-16 16:00] VITALS: BP 125/39
[2022-01-16 20:00] VITALS: BP 136/40
[2022-01-16] MEDS: BENZTROPINE 0.5MG TAB PO SCH (21:38)
[2022-01-17] VITALS (8 sets, daily range): BP systolic 85–147; BP diastolic 44–90
[2022-01-17] MEDS: HALOPERIDOL INJ 5 MG/ML VIAL IV PRN ×3 (00:34→19:39)
[2022-01-17 04:18] LABS: BASOPHILS % (AUTO) 0.2 % (0.0-5.0); EOSINOPHILS % (AUTO) 0.9 % (0.0-8.0); HEMATOCRIT 29.4 % (36-48); LYMPHOCYTES % (AUTO) 10.3 % (21.0-51.0); MEAN CORPUSCULAR HGB CONC 31.6 g/dL (32.0-36.0); MONOCYTES % (AUTO) 6.1 % (3.0-13.0); NEUTROPHILS % (AUTO) 81.7 % (40.0-77.0); PLATELET COUNT (AUTO) 230 K/uL (130-400); RED CELL DISTRIBUTION WIDTH 19.6 % (11.0-15.5); WHITE BLOOD COUNT (AUTO) 14.5 K/uL (4.8-10.8)
[2022-01-17 04:40] LABS: ALBUMIN 2.4 g/dL (3.5-5.0); BILIRUBIN,TOTAL 0.8 mg/dL (0.2-1.0); CREATININE 1.8 mg/dL (0.5-1.5); MAGNESIUM 1.4 mg/dL (1.80-2.40); PHOSPHORUS 3.6 mg/dL (2.5-4.9); POTASSIUM 5.2 mmol/L (3.5-5.1); TOTAL PROTEIN, SERUM 6.9 g/dL (6.0-8.3)
[2022-01-17] MEDS: ZOSYN 3.375GM +NS 50ML IV SCH ×3 (04:58→21:18)
[2022-01-17] MEDS: LACTULOSE 20 GM/30 ML UDCUP PO SCH ×4 (05:00→21:22)
[2022-01-17] MEDS: LEVETIRACETAM 100 MG/ML 5 ML UDCUP PO SCH ×2 (09:31→21:18)
[2022-01-17] MEDS: CITALOPRAM 20 MG TABLET PO SCH (09:31)
[2022-01-17] MEDS: MIDODRINE HCL 5 MG TABLET PO SCH ×3 (09:32→21:19)
[2022-01-17] MEDS: BALSAM PERU/CASTOR OIL 60 GM TUBE TP SCH ×2 (09:32→13:51)
[2022-01-17] MEDS: OLANZAPINE 5 MG TAB PO SCH ×2 (09:32→21:19)
[2022-01-17] MEDS: CHLORHEXIDINE GLUCONATE 473 ML MOUTHWASH MM SCH ×2 (09:32→21:21)
[2022-01-17] MEDS: MAGNESIUM 2GM PREMIX 50ML 50 ML IV PRN (16:13)
[2022-01-17] MEDS ORDERED: RISPERIDONE 1 MG TABLET GT SCH (17:00)
[2022-01-17] MEDS: SAPHRIS 5 MG MISC SCH (19:35)
[2022-01-17] MEDS: BENZTROPINE 0.5MG TAB PO SCH (21:19)
[2022-01-17] MEDS: RISPERIDONE 1 MG TABLET GT PRN (21:21)
[2022-01-17] MEDS: HYDROXYZINE 25 MG TABLET PO PRN (21:21)
[2022-01-18] VITALS: BP 109/46
[2022-01-18 04:00] VITALS: BP 120/42
[2022-01-18 05:40] LABS: CREATININE 1.5 mg/dL (0.5-1.5); POTASSIUM 4.2 mmol/L (3.5-5.1)
[2022-01-18 05:52] LABS: MEAN CORPUSCULAR HEMOGLOBIN 30.3 pg (27.0-33.0); MEAN CORPUSCULAR HGB CONC 30.9 g/dL (32.0-36.0); MEAN CORPUSCULAR VOLUME 98.3 fL (79-99); RED BLOOD CELL COUNT(AUTO) 2.34 MIL/uL (4.00-5.50); RED CELL DISTRIBUTION WIDTH 19.8 % (11.0-15.5); WHITE BLOOD COUNT (AUTO) 12.2 K/uL (4.8-10.8)
[2022-01-18] MEDS: ZOSYN 3.375GM +NS 50ML IV SCH ×2 (06:17→12:35)
[2022-01-18 07:30] VITALS: BP 101/41
[2022-01-18] MEDS: CHLORHEXIDINE GLUCONATE 473 ML MOUTHWASH MM SCH ×2 (09:00→20:56)
[2022-01-18] MEDS: SAPHRIS 5 MG MISC SCH ×3 (09:00→20:56)
[2022-01-18] MEDS: CITALOPRAM 20 MG TABLET PO SCH (09:26)
[2022-01-18] MEDS: OLANZAPINE 5 MG TAB PO SCH ×2 (09:27→20:54)
[2022-01-18] MEDS: LEVETIRACETAM 100 MG/ML 5 ML UDCUP PO SCH ×2 (09:27→20:54)
[2022-01-18] MEDS: MIDODRINE HCL 5 MG TABLET PO SCH ×3 (09:27→20:54)
[2022-01-18 11:00] VITALS: BP 124/65
[2022-01-18] MEDS: HALOPERIDOL INJ 5 MG/ML VIAL IV PRN (12:36)
[2022-01-18] MEDS: LACTULOSE 20 GM/30 ML UDCUP PO SCH ×2 (14:00→20:58)
[2022-01-18] MEDS: RISPERIDONE 1 MG TABLET GT PRN (14:23)
[2022-01-18 16:00] VITALS: BP 129/58
[2022-01-18 19:00] VITALS: BP 133/59
[2022-01-18] MEDS: NYSTATIN 15 GM POWDER TP SCH (20:53)
[2022-01-18] MEDS: BENZTROPINE 0.5MG TAB PO SCH (20:54)
[2022-01-19] VITALS (7 sets, daily range): BP systolic 91–139; BP diastolic 43–65
[2022-01-19] MEDS: RISPERIDONE 1 MG TABLET GT PRN ×3 (00:51→16:04)
[2022-01-19] MEDS: HALOPERIDOL INJ 5 MG/ML VIAL IV PRN ×3 (01:40→22:41)
[2022-01-19 04:57] LABS: BASOPHILS % (AUTO) 0.1 % (0.0-5.0); EOSINOPHILS % (AUTO) 3.8 % (0.0-8.0); HEMATOCRIT 23.8 % (36-48); LYMPHOCYTES % (AUTO) 10.9 % (21.0-51.0); MEAN CORPUSCULAR HGB CONC 31.1 g/dL (32.0-36.0); MEAN CORPUSCULAR VOLUME 99.6 fL (79-99); NEUTROPHILS % (AUTO) 79.7 % (40.0-77.0); PLATELET COUNT (AUTO) 231 K/uL (130-400); RED BLOOD CELL COUNT(AUTO) 2.39 MIL/uL (4.00-5.50); RED CELL DISTRIBUTION WIDTH 19.6 % (11.0-15.5); WHITE BLOOD COUNT (AUTO) 14.2 K/uL (4.8-10.8)
[2022-01-19] MEDS: LACTULOSE 20 GM/30 ML UDCUP PO SCH ×3 (05:06→20:58)
[2022-01-19 05:09] LABS: CREATININE 1.3 mg/dL (0.5-1.5); PHOSPHORUS 3.8 mg/dL (2.5-4.9); POTASSIUM 4.6 mmol/L (3.5-5.1)
[2022-01-19] MEDS: HYDROXYZINE 25 MG TABLET PO PRN ×3 (06:07→16:40)
[2022-01-19] MEDS: LEVETIRACETAM 100 MG/ML 5 ML UDCUP PO SCH ×2 (08:48→20:08)
[2022-01-19] MEDS: OLANZAPINE 5 MG TAB PO SCH ×2 (08:49→20:07)
[2022-01-19] MEDS: MIDODRINE HCL 5 MG TABLET PO SCH ×3 (08:49→20:07)
[2022-01-19] MEDS: CITALOPRAM 20 MG TABLET PO SCH (08:49)
[2022-01-19] MEDS: SAPHRIS 5 MG MISC SCH ×3 (08:50→20:27)
[2022-01-19] MEDS: CHLORHEXIDINE GLUCONATE 473 ML MOUTHWASH MM SCH (08:50)
[2022-01-19] MEDS: NYSTATIN 15 GM POWDER TP SCH ×3 (08:51→20:57)
[2022-01-19] MEDS: RISPERIDONE 1 MG TABLET GT SCH (20:07)
[2022-01-19] MEDS: BENZTROPINE 0.5MG TAB PO SCH (20:07)
[2022-01-20] MEDS: RISPERIDONE 1 MG TABLET GT SCH ×4 (03:10→21:42)
[2022-01-20 03:58] VITALS: BP 102/39
[2022-01-20 04:55] LABS: BASOPHILS % (AUTO) 0.2 % (0.0-5.0); HEMATOCRIT 25.1 % (36-48); LYMPHOCYTES % (AUTO) 15.8 % (21.0-51.0); MEAN CORPUSCULAR HEMOGLOBIN 30.8 pg (27.0-33.0); MEAN CORPUSCULAR HGB CONC 31.1 g/dL (32.0-36.0); MEAN CORPUSCULAR VOLUME 99.2 fL (79-99); MONOCYTES % (AUTO) 6.1 % (3.0-13.0); NEUTROPHILS % (AUTO) 74.2 % (40.0-77.0); PLATELET COUNT (AUTO) 271 K/uL (130-400); RED BLOOD CELL COUNT(AUTO) 2.53 MIL/uL (4.00-5.50); WHITE BLOOD COUNT (AUTO) 15.8 K/uL (4.8-10.8)
[2022-01-20 05:31] LABS: PHOSPHORUS 4.2 mg/dL (2.5-4.9); POTASSIUM 4.3 mmol/L (3.5-5.1)
[2022-01-20] MEDS: LACTULOSE 20 GM/30 ML UDCUP PO SCH ×3 (06:00→21:36)
[2022-01-20 08:00] VITALS: BP 81/51
[2022-01-20 08:37] VITALS: BP 102/69
[2022-01-20] MEDS: MIDODRINE HCL 5 MG TABLET PO SCH ×3 (11:20→21:38)
[2022-01-20] MEDS: CITALOPRAM 20 MG TABLET PO SCH (11:20)
[2022-01-20] MEDS: LEVETIRACETAM 100 MG/ML 5 ML UDCUP PO SCH ×2 (11:20→21:37)
[2022-01-20] MEDS: OLANZAPINE 5 MG TAB PO SCH ×2 (11:20→21:37)
[2022-01-20] MEDS: NYSTATIN 15 GM POWDER TP SCH ×3 (11:21→21:55)
[2022-01-20] MEDS: SAPHRIS 5 MG MISC SCH ×3 (11:21→21:41)
[2022-01-20] MEDS: HALOPERIDOL INJ 5 MG/ML VIAL IV PRN (11:34)
[2022-01-20 12:00] VITALS: BP 99/34
[2022-01-20] MEDS ORDERED: DiphenhydrAMINE HCL 25 MG/10 ML ELIXIR UDCUP PO ONE (15:00)
[2022-01-20] MEDS ORDERED: DiphenhydrAMINE HCL 25 MG/10 ML ELIXIR UDCUP PO PRN (15:00)
[2022-01-20 16:00] VITALS: BP 104/43
[2022-01-20 19:00] VITALS: BP 103/46
[2022-01-20] MEDS: BENZTROPINE 0.5MG TAB PO SCH (21:38)
[2022-01-21] VITALS (14 sets, daily range): BP systolic 93–105; BP diastolic 35–62
[2022-01-21] MEDS: HALOPERIDOL INJ 5 MG/ML VIAL IV PRN (01:58)
[2022-01-21] MEDS: RISPERIDONE 1 MG TABLET GT SCH ×4 (02:01→21:47)
[2022-01-21 04:59] LABS: RED BLOOD CELL COUNT(AUTO) 2.8 MIL/uL (4.00-5.50); RED CELL DISTRIBUTION WIDTH 20.3 % (11.0-15.5); WHITE BLOOD COUNT (AUTO) 15.2 K/uL (4.8-10.8)
[2022-01-21 05:17] LABS: AMMONIA < 3 umol/L (11-32); CARBON DIOXIDE 35 mmol/L (21-32); CHLORIDE 104 mmol/L (101-111); CREATINE KINASE, TOTAL 127 U/L (21-232); CREATININE 3.1 mg/dL (0.5-1.5); GLOMERULAR FILTR. RATE CALC 16 mL/min (>60); GLUCOSE,RANDOM 226 mg/dL (70-105); PHOSPHORUS 4.2 mg/dL (2.5-4.9); POTASSIUM 4.3 mmol/L (3.5-5.1); SODIUM SERUM 151 mmol/L (136-145); UREA NITROGEN, BLOOD 63 mg/dL (7-18)
[2022-01-21] MEDS: LACTULOSE 20 GM/30 ML UDCUP PO SCH ×3 (06:00→22:00)
[2022-01-21] MEDS ORDERED: PROPOFOL 10 MG/ML 20ML VIAL IV ONE (08:46)
[2022-01-21] MEDS: MIDODRINE HCL 5 MG TABLET PO SCH ×3 (09:00→21:45)
[2022-01-21] MEDS: SAPHRIS 5 MG MISC SCH ×3 (09:00→21:47)
[2022-01-21] MEDS: NYSTATIN 15 GM POWDER TP SCH ×2 (11:33→22:09)
[2022-01-21] MEDS: LEVETIRACETAM 100 MG/ML 5 ML UDCUP PO SCH ×2 (13:58→21:44)
[2022-01-21] MEDS: OLANZAPINE 5 MG TAB PO SCH ×2 (13:58→21:44)
[2022-01-21] MEDS: 1/2 NS 1000ML 1,000 ML IV SCH (13:58)
[2022-01-21] MEDS: DOXEPIN HCL 25 MG CAP PO SCH (21:42)
[2022-01-21] MEDS: PANTOPRAZOLE 40 MG TAB DR PO SCH (21:45)
[2022-01-21] MEDS: BENZTROPINE 0.5MG TAB PO SCH (21:45)
[2022-01-22] VITALS: BP 108/50
[2022-01-22] MEDS: 1/2 NS 1000ML 1,000 ML IV SCH ×2 (00:50→14:10)
[2022-01-22] MEDS: RISPERIDONE 1 MG TABLET GT SCH ×4 (03:12→20:13)
[2022-01-22 04:00] VITALS: BP 99/40
[2022-01-22] MEDS: LACTULOSE 20 GM/30 ML UDCUP PO SCH ×3 (05:17→21:33)
[2022-01-22 05:25] LABS: HEMATOCRIT 24.8 % (36-48); MEAN CORPUSCULAR HEMOGLOBIN 31.2 pg (27.0-33.0); MEAN CORPUSCULAR HGB CONC 29.8 g/dL (32.0-36.0); MEAN CORPUSCULAR VOLUME 104.6 fL (79-99); RED BLOOD CELL COUNT(AUTO) 2.37 MIL/uL (4.00-5.50); RED CELL DISTRIBUTION WIDTH 19.9 % (11.0-15.5); WHITE BLOOD COUNT (AUTO) 16.7 K/uL (4.8-10.8)
[2022-01-22 05:48] LABS: CREATININE 3.4 mg/dL (0.5-1.5); POTASSIUM 3.6 mmol/L (3.5-5.1)
[2022-01-22 08:00] VITALS: BP 95/42
[2022-01-22] MEDS: OLANZAPINE 5 MG TAB PO SCH ×2 (08:54→20:08)
[2022-01-22] MEDS: PANTOPRAZOLE 40 MG TAB DR PO SCH ×2 (08:54→20:08)
[2022-01-22] MEDS: MIDODRINE HCL 5 MG TABLET PO SCH ×3 (08:54→20:12)
[2022-01-22] MEDS: LEVETIRACETAM 100 MG/ML 5 ML UDCUP PO SCH ×2 (08:55→20:07)
[2022-01-22] MEDS: NYSTATIN 15 GM POWDER TP SCH ×3 (09:10→20:13)
[2022-01-22 11:00] VITALS: BP 102/45
[2022-01-22] MEDS: SAPHRIS 5 MG MISC SCH ×3 (12:04→20:08)
[2022-01-22 16:00] VITALS: BP 102/48
[2022-01-22] MEDS: DOXEPIN HCL 25 MG CAP PO SCH (20:07)
[2022-01-22] MEDS: BENZTROPINE 0.5MG TAB PO SCH (20:08)
[2022-01-22 20:22] VITALS: BP 106/57
[2022-01-23] VITALS (7 sets, daily range): BP systolic 100–123; BP diastolic 50–56
[2022-01-23] MEDS: RISPERIDONE 1 MG TABLET GT SCH ×4 (02:43→22:01)
[2022-01-23] MEDS: 1/2 NS 1000ML 1,000 ML IV SCH ×3 (02:52→22:33)
[2022-01-23 05:07] LABS: HEMATOCRIT 25.9 % (36-48); MEAN CORPUSCULAR HEMOGLOBIN 30.4 pg (27.0-33.0); MEAN CORPUSCULAR HGB CONC 29.3 g/dL (32.0-36.0); MEAN CORPUSCULAR VOLUME 103.6 fL (79-99); NUCLEATED RED BLOOD CELLS 0.1 % (0.0-0.19); RED BLOOD CELL COUNT(AUTO) 2.5 MIL/uL (4.00-5.50); RED CELL DISTRIBUTION WIDTH 18.8 % (11.0-15.5); WHITE BLOOD COUNT (AUTO) 16.6 K/uL (4.8-10.8)
[2022-01-23] MEDS: LACTULOSE 20 GM/30 ML UDCUP PO SCH ×3 (05:27→22:00)
[2022-01-23 05:28] LABS: CREATININE 3.1 mg/dL (0.5-1.5); MAGNESIUM 2.3 mg/dL (1.80-2.40); PHOSPHORUS 4.9 mg/dL (2.5-4.9); POTASSIUM 3.4 mmol/L (3.5-5.1)
[2022-01-23] MEDS: OLANZAPINE 5 MG TAB PO SCH ×2 (08:00→21:59)
[2022-01-23] MEDS: SAPHRIS 5 MG MISC SCH ×2 (09:00→14:00)
[2022-01-23] MEDS: MIDODRINE HCL 5 MG TABLET PO SCH ×3 (10:26→21:59)
[2022-01-23] MEDS: LEVETIRACETAM 100 MG/ML 5 ML UDCUP PO SCH ×2 (10:26→21:59)
[2022-01-23] MEDS: PANTOPRAZOLE 40 MG TAB DR PO SCH ×2 (10:26→21:59)
[2022-01-23] MEDS: NYSTATIN 15 GM POWDER TP SCH ×3 (10:30→22:09)
[2022-01-23] MEDS: DiphenhydrAMINE HCL 25 MG/10 ML ELIXIR UDCUP PO PRN ×2 (14:30→23:56)
[2022-01-23] MEDS ORDERED: ACETAMINOPHEN 650 MG/20.3 ML UDCUP PEG ONE (19:00)
[2022-01-23] MEDS: DOXEPIN HCL 25 MG CAP PO SCH (21:58)
[2022-01-23] MEDS: BENZTROPINE 0.5MG TAB PO SCH (21:59)
[2022-01-24] MEDS: RISPERIDONE 1 MG TABLET GT SCH ×4 (03:07→21:49)
[2022-01-24 04:01] VITALS: BP 106/49
[2022-01-24] MEDS: LACTULOSE 20 GM/30 ML UDCUP PO SCH ×3 (06:00→21:44)
[2022-01-24] MEDS: 1/2 NS 1000ML 1,000 ML IV SCH (06:10)
[2022-01-24 08:00] VITALS: BP_SYST 135; BP_SYST 81; BP_DIAS 42; BP_DIAS 70
[2022-01-24] MEDS: DiphenhydrAMINE HCL 25 MG/10 ML ELIXIR UDCUP PO PRN ×2 (09:25→21:44)
[2022-01-24] MEDS: OLANZAPINE 5 MG TAB PO SCH ×2 (09:26→21:44)
[2022-01-24] MEDS: NYSTATIN 15 GM POWDER TP SCH ×4 (09:26→23:30)
[2022-01-24] MEDS: MIDODRINE HCL 5 MG TABLET PO SCH ×3 (09:26→21:49)
[2022-01-24] MEDS: PANTOPRAZOLE 40 MG TAB DR PO SCH ×2 (09:26→21:43)
[2022-01-24] MEDS: LEVETIRACETAM 100 MG/ML 5 ML UDCUP PO SCH ×2 (09:26→21:44)
[2022-01-24 12:00] VITALS: BP 114/49
[2022-01-24 16:00] VITALS: BP 94/34
[2022-01-24 20:00] VITALS: BP 105/72
[2022-01-24] MEDS: DOXEPIN HCL 25 MG CAP PO SCH (21:43)
[2022-01-24] MEDS: BENZTROPINE 0.5MG TAB PO SCH (21:43)
[2022-01-24] MEDS: SAPHRIS 5 MG MISC SCH (22:01)
[2022-01-25] MEDS: HALOPERIDOL INJ 5 MG/ML VIAL IV PRN ×2 (00:22→18:34)
[2022-01-25] MEDS: 1/2 NS 1000ML 1,000 ML IV SCH ×2 (00:30→21:36)
[2022-01-25] MEDS: RISPERIDONE 1 MG TABLET GT SCH ×4 (04:56→21:39)
[2022-01-25] MEDS: LACTULOSE 20 GM/30 ML UDCUP PO SCH ×3 (05:51→21:33)
[2022-01-25 06:02] LABS: BASOPHILS % (AUTO) 0.1 % (0.0-5.0); EOSINOPHILS % (AUTO) 3.7 % (0.0-8.0); HEMATOCRIT 24.2 % (36-48); LYMPHOCYTES % (AUTO) 12.3 % (21.0-51.0); MEAN CORPUSCULAR HEMOGLOBIN 30.1 pg (27.0-33.0); MEAN CORPUSCULAR VOLUME 97.2 fL (79-99); MONOCYTES % (AUTO) 5.5 % (3.0-13.0); NEUTROPHILS % (AUTO) 77.4 % (40.0-77.0); PLATELET COUNT (AUTO) 219 K/uL (130-400); RED BLOOD CELL COUNT(AUTO) 2.49 MIL/uL (4.00-5.50); RED CELL DISTRIBUTION WIDTH 18.1 % (11.0-15.5); WHITE BLOOD COUNT (AUTO) 14.8 K/uL (4.8-10.8)
[2022-01-25 06:21] LABS: ALBUMIN 1.9 g/dL (3.5-5.0); BILIRUBIN,TOTAL 0.4 mg/dL (0.2-1.0); CREATININE 2.3 mg/dL (0.5-1.5); MAGNESIUM 1.7 mg/dL (1.80-2.40); TOTAL PROTEIN, SERUM 5.7 g/dL (6.0-8.3)
[2022-01-25 06:27] LABS: POTASSIUM 2.5 mmol/L (3.5-5.1)
[2022-01-25] MEDS ORDERED: LIDOCAINE HCL-MPF 1% 2ML VIAL IJ PRN ×2 (07:00)
[2022-01-25 08:00] VITALS: BP 101/43
[2022-01-25] MEDS: DiphenhydrAMINE HCL 25 MG/10 ML ELIXIR UDCUP PO PRN (09:47)
[2022-01-25] MEDS: MAGNESIUM 2GM PREMIX 50ML 50 ML IV PRN (09:47)
[2022-01-25] MEDS: LEVETIRACETAM 100 MG/ML 5 ML UDCUP PO SCH ×2 (09:47→21:34)
[2022-01-25] MEDS: MIDODRINE HCL 5 MG TABLET PO SCH ×3 (09:48→21:36)
[2022-01-25] MEDS: PANTOPRAZOLE 40 MG TAB DR PO SCH ×2 (09:48→21:35)
[2022-01-25] MEDS: OLANZAPINE 5 MG TAB PO SCH ×2 (09:48→21:35)
[2022-01-25] MEDS: NYSTATIN 15 GM POWDER TP SCH ×2 (09:50→15:23)
[2022-01-25] MEDS: SAPHRIS 5 MG MISC SCH ×5 (10:05→21:36)
[2022-01-25 12:00] VITALS: BP 135/79
[2022-01-25] MEDS: POTASSIUM CHLORIDE 20MEQ/100ML 100 ML IV PRN ×2 (12:08→13:01)
[2022-01-25 20:00] VITALS: BP 123/66
[2022-01-25] MEDS: POTASSIUM CHLORIDE 10% ELIXIR 20 MEQ/15 ML UDCUP PO PRN (21:34)
[2022-01-25] MEDS: DOXEPIN HCL 25 MG CAP PO SCH (21:35)
[2022-01-25] MEDS: BENZTROPINE 0.5MG TAB PO SCH (21:35)
[2022-01-25] MEDS ORDERED: DIPHENHYDRAMINE HCL 25 MG CAPSULE ONE (23:00)
[2022-01-26] MEDS: POTASSIUM CHLORIDE 10% ELIXIR 20 MEQ/15 ML UDCUP PO PRN (00:55)
[2022-01-26 04:00] VITALS: BP 139/75
[2022-01-26] MEDS: RISPERIDONE 1 MG TABLET GT SCH ×4 (04:38→20:45)
[2022-01-26 05:18] LABS: HEMATOCRIT 23.6 % (36-48); MEAN CORPUSCULAR HEMOGLOBIN 31.5 pg (27.0-33.0); MEAN CORPUSCULAR HGB CONC 31.8 g/dL (32.0-36.0); MEAN CORPUSCULAR VOLUME 99.2 fL (79-99); RED BLOOD CELL COUNT(AUTO) 2.38 MIL/uL (4.00-5.50); RED CELL DISTRIBUTION WIDTH 18.6 % (11.0-15.5); WHITE BLOOD COUNT (AUTO) 14.3 K/uL (4.8-10.8)
[2022-01-26] MEDS: LACTULOSE 20 GM/30 ML UDCUP PO SCH ×3 (05:35→20:30)
[2022-01-26 05:41] LABS: CREATININE 1.9 mg/dL (0.5-1.5); POTASSIUM 4.1 mmol/L (3.5-5.1)
[2022-01-26] MEDS: SAPHRIS 5 MG MISC SCH ×3 (09:10→20:45)
[2022-01-26] MEDS: PANTOPRAZOLE 40 MG TAB DR PO SCH ×2 (09:11→20:29)
[2022-01-26] MEDS: MIDODRINE HCL 5 MG TABLET PO SCH ×3 (09:11→20:45)
[2022-01-26] MEDS: OLANZAPINE 5 MG TAB PO SCH ×2 (09:11→20:29)
[2022-01-26] MEDS: NYSTATIN 15 GM POWDER TP SCH ×3 (09:12→21:00)
[2022-01-26] MEDS: LEVETIRACETAM 100 MG/ML 5 ML UDCUP PO SCH ×2 (09:12→20:29)
[2022-01-26 11:00] VITALS: BP 137/62
[2022-01-26 20:00] VITALS: BP 128/52
[2022-01-26] MEDS: BENZTROPINE 0.5MG TAB PO SCH (20:29)
[2022-01-26] MEDS: DOXEPIN HCL 25 MG CAP PO SCH (20:30)
[2022-01-27] VITALS: BP 92/50
[2022-01-27] MEDS: RISPERIDONE 1 MG TABLET GT SCH ×4 (03:52→20:37)
[2022-01-27 04:00] VITALS: BP 138/53
[2022-01-27] MEDS: LACTULOSE 20 GM/30 ML UDCUP PO SCH ×3 (06:23→22:00)
[2022-01-27 07:30] VITALS: BP 97/51
[2022-01-27] MEDS: LEVETIRACETAM 100 MG/ML 5 ML UDCUP PO SCH ×2 (09:15→20:15)
[2022-01-27] MEDS: OLANZAPINE 5 MG TAB PO SCH ×2 (09:15→20:15)
[2022-01-27] MEDS: MIDODRINE HCL 5 MG TABLET PO SCH ×3 (09:16→20:15)
[2022-01-27] MEDS: PANTOPRAZOLE 40 MG TAB DR PO SCH ×2 (09:16→20:15)
[2022-01-27] MEDS: SAPHRIS 5 MG MISC SCH (09:17)
[2022-01-27] MEDS: NYSTATIN 15 GM POWDER TP SCH ×3 (09:17→20:37)
[2022-01-27] MEDS: 1/2 NS 1000ML 1,000 ML IV SCH (09:50)
[2022-01-27] MEDS ORDERED: PHARMACY COMMUNICATION MISC SCH (10:30)
[2022-01-27 11:00] VITALS: BP 100/42
[2022-01-27] MEDS ORDERED: DIAZEPAM 5 MG TABLET PO ONE (13:00)
[2022-01-27] MEDS ORDERED: DIAZEPAM 5 MG TABLET ONE (14:17)
[2022-01-27] MEDS: SAPHRIS 5 MG PEG SCH ×2 (14:31→20:37)
[2022-01-27 16:00] VITALS: BP 91/56
[2022-01-27 19:30] VITALS: BP 96/50
[2022-01-27] MEDS: DOXEPIN HCL 25 MG CAP PO SCH (20:15)
[2022-01-27] MEDS: DIAZEPAM 5 MG TABLET PO SCH (20:15)
[2022-01-27] MEDS: BENZTROPINE 0.5MG TAB PO SCH (20:15)
[2022-01-28] VITALS: BP 103/44
[2022-01-28] MEDS: RISPERIDONE 1 MG TABLET GT SCH ×4 (03:00→21:11)
[2022-01-28 04:00] VITALS: BP 93/51
[2022-01-28 05:38] LABS: HEMATOCRIT 23.9 % (36-48); MEAN CORPUSCULAR HEMOGLOBIN 30.4 pg (27.0-33.0); MEAN CORPUSCULAR HGB CONC 30.5 g/dL (32.0-36.0); MEAN CORPUSCULAR VOLUME 99.6 fL (79-99); RED BLOOD CELL COUNT(AUTO) 2.4 MIL/uL (4.00-5.50); RED CELL DISTRIBUTION WIDTH 19.1 % (11.0-15.5); WHITE BLOOD COUNT (AUTO) 9.9 K/uL (4.8-10.8)
[2022-01-28 05:49] LABS: CREATININE 1.3 mg/dL (0.5-1.5); MAGNESIUM 1.7 mg/dL (1.80-2.40); POTASSIUM 3.6 mmol/L (3.5-5.1)
[2022-01-28] MEDS: LACTULOSE 20 GM/30 ML UDCUP PO SCH ×2 (06:41→14:06)
[2022-01-28 08:00] VITALS: BP 124/50
[2022-01-28] MEDS: SAPHRIS 5 MG PEG SCH ×3 (08:35→20:29)
[2022-01-28] MEDS: LEVETIRACETAM 100 MG/ML 5 ML UDCUP PO SCH ×2 (08:36→20:25)
[2022-01-28] MEDS: OLANZAPINE 5 MG TAB PO SCH ×2 (08:36→20:26)
[2022-01-28] MEDS: PANTOPRAZOLE 40 MG TAB DR PO SCH (08:36)
[2022-01-28] MEDS: MIDODRINE HCL 5 MG TABLET PO SCH ×3 (08:36→21:10)
[2022-01-28] MEDS: DIAZEPAM 5 MG TABLET PO SCH ×2 (08:37→20:26)
[2022-01-28] MEDS: NYSTATIN 15 GM POWDER TP SCH ×3 (08:38→20:28)
[2022-01-28] MEDS: MAGNESIUM 2GM PREMIX 50ML 50 ML IV SCH (09:27)
[2022-01-28 11:46] VITALS: BP 93/47
[2022-01-28 16:00] VITALS: BP 100/46
[2022-01-28] MEDS: DOXEPIN HCL 25 MG CAP PO SCH (20:25)
[2022-01-28] MEDS: BENZTROPINE 0.5MG TAB PO SCH (20:26)
[2022-01-28] MEDS: 1/2 NS 1000ML 1,000 ML IV SCH (21:09)
[2022-01-28] MEDS: LANSOPRAZOLE 15 MG SOLU TAB GT SCH (21:10)
[2022-01-28 22:47] VITALS: BP 106/53
[2022-01-28] MEDS: HALOPERIDOL INJ 5 MG/ML VIAL IV PRN (23:22)
[2022-01-29] VITALS (7 sets, daily range): BP systolic 103–129; BP diastolic 44–61
[2022-01-29] MEDS: RISPERIDONE 1 MG TABLET GT SCH ×4 (02:48→20:59)
[2022-01-29] MEDS: 1/2 NS 1000ML 1,000 ML IV SCH ×2 (05:14→09:00)
[2022-01-29] MEDS: MAGNESIUM 2GM PREMIX 50ML 50 ML IV SCH (06:17)
[2022-01-29] MEDS: SAPHRIS 5 MG PEG SCH ×4 (09:00→21:00)
[2022-01-29] MEDS: OLANZAPINE 5 MG TAB PO SCH (09:38)
[2022-01-29] MEDS: DIAZEPAM 5 MG TABLET PO SCH ×2 (09:39→21:01)
[2022-01-29] MEDS: LANSOPRAZOLE 15 MG SOLU TAB GT SCH ×2 (09:39→20:58)
[2022-01-29] MEDS: MIDODRINE HCL 5 MG TABLET PO SCH ×3 (09:39→21:03)
[2022-01-29] MEDS: LEVETIRACETAM 100 MG/ML 5 ML UDCUP PO SCH ×2 (09:40→21:00)
[2022-01-29] MEDS: NYSTATIN 15 GM POWDER TP SCH ×3 (09:49→21:01)
[2022-01-29] MEDS: DOXEPIN HCL 25 MG CAP PO SCH (21:00)
[2022-01-30] VITALS: BP 113/44
[2022-01-30] MEDS: RISPERIDONE 1 MG TABLET GT SCH ×4 (02:13→20:35)
[2022-01-30 04:00] VITALS: BP 128/51
[2022-01-30 08:00] VITALS: BP 109/44
[2022-01-30] MEDS: 1/2 NS 1000ML 1,000 ML IV SCH ×2 (08:50→22:10)
[2022-01-30] MEDS: NYSTATIN 15 GM POWDER TP SCH ×3 (09:00→20:37)
[2022-01-30] MEDS: SAPHRIS 5 MG PEG SCH ×2 (09:30→13:02)
[2022-01-30] MEDS: LEVETIRACETAM 100 MG/ML 5 ML UDCUP PO SCH ×2 (10:19→20:36)
[2022-01-30] MEDS: LANSOPRAZOLE 15 MG SOLU TAB GT SCH ×2 (10:19→20:35)
[2022-01-30] MEDS: DIAZEPAM 5 MG TABLET PO SCH ×2 (10:19→20:36)
[2022-01-30] MEDS: MIDODRINE HCL 5 MG TABLET PO SCH (10:19)
[2022-01-30] MEDS: OLANZAPINE 5 MG TAB PO SCH (10:19)
[2022-01-30 16:00] VITALS: BP 120/52
[2022-01-30 20:00] VITALS: BP 116/41
[2022-01-30] MEDS: DOXEPIN HCL 25 MG CAP PO SCH (20:35)
[2022-01-30] MEDS: ASENAPINE PEG SCH (20:36)
[2022-01-30] MEDS: [UNRECOGNIZED DRUG - OTHER] PEG SCH (20:36)
[2022-01-31] VITALS: BP 122/55
[2022-01-31 04:00] VITALS: BP 127/44
[2022-01-31] MEDS: RISPERIDONE 1 MG TABLET GT SCH ×4 (04:13→20:41)
[2022-01-31 05:31] LABS: BASOPHILS % (AUTO) 0.3 % (0.0-5.0); EOSINOPHILS % (AUTO) 4.6 % (0.0-8.0); HEMATOCRIT 23.2 % (36-48); LYMPHOCYTES % (AUTO) 15.8 % (21.0-51.0); MEAN CORPUSCULAR HEMOGLOBIN 31.5 pg (27.0-33.0); MEAN CORPUSCULAR HGB CONC 31.5 g/dL (32.0-36.0); MONOCYTES % (AUTO) 6.9 % (3.0-13.0); NEUTROPHILS % (AUTO) 71.7 % (40.0-77.0); PLATELET COUNT (AUTO) 213 K/uL (130-400); RED BLOOD CELL COUNT(AUTO) 2.32 MIL/uL (4.00-5.50); RED CELL DISTRIBUTION WIDTH 18.5 % (11.0-15.5); WHITE BLOOD COUNT (AUTO) 12.2 K/uL (4.8-10.8)
[2022-01-31 05:52] LABS: ALBUMIN 1.6 g/dL (3.5-5.0); BILIRUBIN,TOTAL 0.3 mg/dL (0.2-1.0); CREATININE 1.1 mg/dL (0.5-1.5); MAGNESIUM 1.7 mg/dL (1.80-2.40); POTASSIUM 4.1 mmol/L (3.5-5.1); TOTAL PROTEIN, SERUM 5.2 g/dL (6.0-8.3)
[2022-01-31 09:01] VITALS: BP 117/96
[2022-01-31] MEDS: OLANZAPINE 5 MG TAB PO SCH (09:59)
[2022-01-31] MEDS: DIAZEPAM 5 MG TABLET PO SCH ×2 (09:59→20:41)
[2022-01-31] MEDS: LEVETIRACETAM 100 MG/ML 5 ML UDCUP PO SCH (10:00)
[2022-01-31] MEDS: ASENAPINE PEG SCH ×3 (10:01→20:42)
[2022-01-31] MEDS: [UNRECOGNIZED DRUG - OTHER] PEG SCH ×3 (10:01→20:42)
[2022-01-31] MEDS: LANSOPRAZOLE 15 MG SOLU TAB GT SCH ×2 (10:13→20:41)
[2022-01-31] MEDS: NYSTATIN 15 GM POWDER TP SCH ×3 (10:35→20:41)
[2022-01-31] MEDS: 1/2 NS 1000ML 1,000 ML IV SCH (11:30)
[2022-01-31 13:01] VITALS: BP 126/38
[2022-01-31 19:11] VITALS: BP_SYST 126; BP_SYST 133; BP_DIAS 38; BP_DIAS 58
[2022-01-31 20:00] VITALS: BP 127/64
[2022-01-31] MEDS: DOXEPIN HCL 25 MG CAP PO SCH (20:41)
[2022-02-01] VITALS: BP 124/54
[2022-02-01] MEDS: 1/2 NS 1000ML 1,000 ML IV SCH ×2 (00:50→14:10)
[2022-02-01] MEDS: RISPERIDONE 1 MG TABLET GT SCH ×4 (02:38→20:09)
[2022-02-01 04:00] VITALS: BP 138/87
[2022-02-01 07:13] LABS: BASOPHILS % (AUTO) 0.3 % (0.0-5.0); EOSINOPHILS % (AUTO) 4.4 % (0.0-8.0); LYMPHOCYTES % (AUTO) 14.4 % (21.0-51.0); MEAN CORPUSCULAR HEMOGLOBIN 30.9 pg (27.0-33.0); MEAN CORPUSCULAR HGB CONC 30.9 g/dL (32.0-36.0); MONOCYTES % (AUTO) 6.6 % (3.0-13.0); NEUTROPHILS % (AUTO) 73.6 % (40.0-77.0); PLATELET COUNT (AUTO) 204 K/uL (130-400); RED CELL DISTRIBUTION WIDTH 18.1 % (11.0-15.5); WHITE BLOOD COUNT (AUTO) 12.3 K/uL (4.8-10.8)
[2022-02-01 07:30] VITALS: BP 120/57
[2022-02-01 07:31] LABS: ALBUMIN 1.5 g/dL (3.5-5.0); BILIRUBIN,TOTAL 0.2 mg/dL (0.2-1.0); CREATININE 0.9 mg/dL (0.5-1.5); MAGNESIUM 1.4 mg/dL (1.80-2.40); PHOSPHORUS 3.5 mg/dL (2.5-4.9); POTASSIUM 3.8 mmol/L (3.5-5.1); TOTAL PROTEIN, SERUM 4.9 g/dL (6.0-8.3)
[2022-02-01] MEDS: DIAZEPAM 5 MG TABLET PO SCH ×2 (08:15→20:09)
[2022-02-01] MEDS: [UNRECOGNIZED DRUG - OTHER] PEG SCH ×3 (08:16→20:09)
[2022-02-01] MEDS: ASENAPINE PEG SCH ×3 (08:16→20:09)
[2022-02-01] MEDS: LANSOPRAZOLE 15 MG SOLU TAB GT SCH ×2 (10:22→20:09)
[2022-02-01] MEDS: NYSTATIN 15 GM POWDER TP SCH ×3 (10:23→22:41)
[2022-02-01 11:00] VITALS: BP 111/58
[2022-02-01 16:00] VITALS: BP 99/50
[2022-02-01 20:00] VITALS: BP 103/37
[2022-02-01] MEDS: DOXEPIN HCL 25 MG CAP PO SCH (20:09)
[2022-02-02] VITALS: BP 114/50
[2022-02-02] MEDS: RISPERIDONE 1 MG TABLET GT SCH ×4 (02:56→20:03)
[2022-02-02] MEDS: 1/2 NS 1000ML 1,000 ML IV SCH ×2 (03:30→16:50)
[2022-02-02 04:00] VITALS: BP 111/82
[2022-02-02 05:16] LABS: HEMATOCRIT 23.3 % (36-48); MEAN CORPUSCULAR HEMOGLOBIN 31.8 pg (27.0-33.0); MEAN CORPUSCULAR HGB CONC 31.8 g/dL (32.0-36.0); RED BLOOD CELL COUNT(AUTO) 2.33 MIL/uL (4.00-5.50); RED CELL DISTRIBUTION WIDTH 18.2 % (11.0-15.5); WHITE BLOOD COUNT (AUTO) 8.6 K/uL (4.8-10.8)
[2022-02-02 05:28] LABS: CREATININE 0.9 mg/dL (0.5-1.5); POTASSIUM 4.2 mmol/L (3.5-5.1)
[2022-02-02 07:30] VITALS: BP 110/51
[2022-02-02] MEDS: LANSOPRAZOLE 15 MG SOLU TAB GT SCH ×2 (09:46→20:01)
[2022-02-02] MEDS: DIAZEPAM 5 MG TABLET PO SCH ×2 (09:47→20:01)
[2022-02-02] MEDS: NYSTATIN 15 GM POWDER TP SCH ×2 (09:48→16:01)
[2022-02-02] MEDS: ASENAPINE PEG SCH ×3 (09:50→20:02)
[2022-02-02] MEDS: [UNRECOGNIZED DRUG - OTHER] PEG SCH ×3 (09:50→20:02)
[2022-02-02 11:00] VITALS: BP 120/46
[2022-02-02 16:00] VITALS: BP 112/55
[2022-02-02] MEDS: DOXEPIN HCL 25 MG CAP PO SCH (20:01)
[2022-02-02 20:28] VITALS: BP 104/46
[2022-02-03 00:28] VITALS: BP 105/45
[2022-02-03] MEDS: NYSTATIN 15 GM POWDER TP SCH ×4 (02:26→21:00)
[2022-02-03] MEDS: RISPERIDONE 1 MG TABLET GT SCH ×4 (02:37→20:30)
[2022-02-03 04:28] VITALS: BP 120/55
[2022-02-03] MEDS: 1/2 NS 1000ML 1,000 ML IV SCH ×2 (06:10→19:30)
[2022-02-03 08:00] VITALS: BP 92/41
[2022-02-03] MEDS: ASENAPINE PEG SCH ×3 (09:22→20:29)
[2022-02-03] MEDS: [UNRECOGNIZED DRUG - OTHER] PEG SCH ×3 (09:22→20:29)
[2022-02-03] MEDS: LANSOPRAZOLE 15 MG SOLU TAB GT SCH ×2 (09:23→20:28)
[2022-02-03] MEDS: DIAZEPAM 5 MG TABLET PO SCH ×2 (09:23→20:28)
[2022-02-03 12:00] VITALS: BP 101/40
[2022-02-03 16:00] VITALS: BP 93/40
[2022-02-03 20:00] VITALS: BP 128/55
[2022-02-03] MEDS: DOXEPIN HCL 25 MG CAP PO SCH (20:28)
[2022-02-04] VITALS: BP 134/55
[2022-02-04] MEDS: RISPERIDONE 1 MG TABLET GT SCH ×4 (03:42→20:43)
[2022-02-04 05:13] VITALS: BP 112/52
[2022-02-04 05:38] LABS: BASOPHILS % (AUTO) 0.2 % (0.0-5.0); EOSINOPHILS % (AUTO) 2.8 % (0.0-8.0); HEMATOCRIT 26.1 % (36-48); LYMPHOCYTES % (AUTO) 20.4 % (21.0-51.0); MEAN CORPUSCULAR HEMOGLOBIN 30.4 pg (27.0-33.0); MEAN CORPUSCULAR HGB CONC 29.5 g/dL (32.0-36.0); MEAN CORPUSCULAR VOLUME 103.2 fL (79-99); MONOCYTES % (AUTO) 6.3 % (3.0-13.0); NEUTROPHILS % (AUTO) 69.6 % (40.0-77.0); PLATELET COUNT (AUTO) 244 K/uL (130-400); RED BLOOD CELL COUNT(AUTO) 2.53 MIL/uL (4.00-5.50); RED CELL DISTRIBUTION WIDTH 18.1 % (11.0-15.5); WHITE BLOOD COUNT (AUTO) 8.6 K/uL (4.8-10.8)
[2022-02-04 06:04] LABS: ALBUMIN 1.5 g/dL (3.5-5.0); BILIRUBIN,TOTAL 0.3 mg/dL (0.2-1.0); CREATININE 1.1 mg/dL (0.5-1.5); MAGNESIUM 1.5 mg/dL (1.80-2.40); PHOSPHORUS 3.9 mg/dL (2.5-4.9); POTASSIUM 5.2 mmol/L (3.5-5.1); TOTAL PROTEIN, SERUM 5.4 g/dL (6.0-8.3)
[2022-02-04 08:00] VITALS: BP 102/64
[2022-02-04] MEDS: 1/2 NS 1000ML 1,000 ML IV SCH ×2 (08:50→22:10)
[2022-02-04] MEDS: DIAZEPAM 5 MG TABLET PO SCH ×2 (09:49→20:43)
[2022-02-04] MEDS: LANSOPRAZOLE 15 MG SOLU TAB GT SCH ×2 (09:49→20:43)
[2022-02-04] MEDS: ASENAPINE PEG SCH ×3 (09:52→20:44)
[2022-02-04] MEDS: [UNRECOGNIZED DRUG - OTHER] PEG SCH ×3 (09:52→20:44)
[2022-02-04] MEDS: NYSTATIN 15 GM POWDER TP SCH ×3 (09:58→20:47)
[2022-02-04] MEDS: DiphenhydrAMINE HCL 25 MG/10 ML ELIXIR UDCUP PO PRN (12:58)
[2022-02-04] MEDS: MAGNESIUM OXIDE 400 MG TABLET PO SCH (14:18)
[2022-02-04 20:00] VITALS: BP 119/48
[2022-02-04] MEDS: DOXEPIN HCL 25 MG CAP PO SCH (20:43)
[2022-02-05] VITALS: BP 120/82
[2022-02-05] MEDS: RISPERIDONE 1 MG TABLET GT SCH ×4 (03:50→21:00)
[2022-02-05 04:00] VITALS: BP 121/44
[2022-02-05] MEDS: DiphenhydrAMINE HCL 25 MG/10 ML ELIXIR UDCUP PO PRN (04:48)
[2022-02-05 05:13] LABS: HEMATOCRIT 25.8 % (36-48); MEAN CORPUSCULAR HEMOGLOBIN 31.1 pg (27.0-33.0); MEAN CORPUSCULAR HGB CONC 30.2 g/dL (32.0-36.0); MEAN CORPUSCULAR VOLUME 102.8 fL (79-99); RED BLOOD CELL COUNT(AUTO) 2.51 MIL/uL (4.00-5.50); RED CELL DISTRIBUTION WIDTH 17.6 % (11.0-15.5); WHITE BLOOD COUNT (AUTO) 11.1 K/uL (4.8-10.8)
[2022-02-05 05:44] LABS: ALBUMIN 1.6 g/dL (3.5-5.0); BILIRUBIN,TOTAL 0.3 mg/dL (0.2-1.0); CREATININE 1.1 mg/dL (0.5-1.5); MAGNESIUM 1.7 mg/dL (1.80-2.40); PHOSPHORUS 3.5 mg/dL (2.5-4.9); POTASSIUM 4.9 mmol/L (3.5-5.1); TOTAL PROTEIN, SERUM 5.5 g/dL (6.0-8.3)
[2022-02-05 07:30] VITALS: BP 108/50
[2022-02-05] MEDS: LANSOPRAZOLE 15 MG SOLU TAB GT SCH ×2 (09:36→22:38)
[2022-02-05] MEDS: DIAZEPAM 5 MG TABLET PO SCH ×2 (09:37→22:39)
[2022-02-05] MEDS: [UNRECOGNIZED DRUG - OTHER] PEG SCH ×3 (09:39→22:37)
[2022-02-05] MEDS: ASENAPINE PEG SCH ×3 (09:39→22:37)
[2022-02-05] MEDS: NYSTATIN 15 GM POWDER TP SCH ×3 (09:41→21:00)
[2022-02-05 11:00] VITALS: BP 100/35
[2022-02-05] MEDS: 1/2 NS 1000ML 1,000 ML IV SCH (11:30)
[2022-02-05] MEDS: MAGNESIUM OXIDE 400 MG TABLET PO SCH (14:12)
[2022-02-05 16:00] VITALS: BP 105/55
[2022-02-05 19:30] VITALS: BP 132/55
[2022-02-05] MEDS: DOXEPIN HCL 25 MG CAP PO SCH (22:39)
[2022-02-06] VITALS: BP 123/51
[2022-02-06] MEDS: 1/2 NS 1000ML 1,000 ML IV SCH ×2 (00:50→14:10)
[2022-02-06] MEDS: RISPERIDONE 1 MG TABLET GT SCH ×4 (03:00→21:26)
[2022-02-06 04:00] VITALS: BP 122/52
[2022-02-06 04:46] LABS: BASOPHILS % (AUTO) 0.3 % (0.0-5.0); HEMATOCRIT 25.8 % (36-48); LYMPHOCYTES % (AUTO) 16.4 % (21.0-51.0); MEAN CORPUSCULAR HEMOGLOBIN 31.9 pg (27.0-33.0); MEAN CORPUSCULAR HGB CONC 31.4 g/dL (32.0-36.0); MEAN CORPUSCULAR VOLUME 101.6 fL (79-99); MONOCYTES % (AUTO) 6.7 % (3.0-13.0); NEUTROPHILS % (AUTO) 70.2 % (40.0-77.0); PLATELET COUNT (AUTO) 287 K/uL (130-400); RED BLOOD CELL COUNT(AUTO) 2.54 MIL/uL (4.00-5.50); RED CELL DISTRIBUTION WIDTH 17.6 % (11.0-15.5); WHITE BLOOD COUNT (AUTO) 10.5 K/uL (4.8-10.8)
[2022-02-06 05:12] LABS: CREATININE 1.1 mg/dL (0.5-1.5); MAGNESIUM 1.8 mg/dL (1.80-2.40); PHOSPHORUS 4.1 mg/dL (2.5-4.9); POTASSIUM 4.7 mmol/L (3.5-5.1)
[2022-02-06 08:36] VITALS: BP 126/53
[2022-02-06] MEDS: LANSOPRAZOLE 15 MG SOLU TAB GT SCH ×2 (09:03→21:26)
[2022-02-06] MEDS: DIAZEPAM 5 MG TABLET PO SCH ×2 (09:03→21:26)
[2022-02-06] MEDS: [UNRECOGNIZED DRUG - OTHER] PEG SCH ×2 (09:04→14:00)
[2022-02-06] MEDS: ASENAPINE PEG SCH ×3 (09:04→21:25)
[2022-02-06] MEDS: NYSTATIN 15 GM POWDER TP SCH ×3 (09:05→21:27)
[2022-02-06 12:04] VITALS: BP 109/56
[2022-02-06] MEDS: MAGNESIUM OXIDE 400 MG TABLET PO SCH (14:44)
[2022-02-06 18:14] VITALS: BP 99/44
[2022-02-06 20:00] VITALS: BP 136/59
[2022-02-06] MEDS: [UNRECOGNIZED DRUG - OTHER] PEG SCH (21:25)
[2022-02-06] MEDS: DOXEPIN HCL 25 MG CAP PO SCH (21:26)
[2022-02-07] VITALS (7 sets, daily range): BP systolic 118–139; BP diastolic 46–61
[2022-02-07] MEDS: RISPERIDONE 1 MG TABLET GT SCH ×4 (02:48→20:16)
[2022-02-07] MEDS: 1/2 NS 1000ML 1,000 ML IV SCH ×2 (03:30→16:50)
[2022-02-07] MEDS: LANSOPRAZOLE 15 MG SOLU TAB GT SCH ×2 (09:21→20:17)
[2022-02-07] MEDS: NYSTATIN 15 GM POWDER TP SCH ×3 (09:21→20:31)
[2022-02-07] MEDS: [UNRECOGNIZED DRUG - OTHER] PEG SCH ×2 (09:21→20:30)
[2022-02-07] MEDS: ASENAPINE PEG SCH ×2 (09:21→20:30)
[2022-02-07] MEDS: DIAZEPAM 5 MG TABLET PO SCH ×2 (09:22→20:17)
[2022-02-07] MEDS: MAGNESIUM OXIDE 400 MG TABLET PO SCH (14:23)
[2022-02-07] MEDS: DOXEPIN HCL 25 MG CAP PO SCH (20:16)
[2022-02-08] MEDS: RISPERIDONE 1 MG TABLET GT SCH ×4 (01:26→19:59)
[2022-02-08 03:24] VITALS: BP 126/95
[2022-02-08] MEDS: 1/2 NS 1000ML 1,000 ML IV SCH ×2 (05:10→19:30)
[2022-02-08 05:21] LABS: HEMATOCRIT 24.5 % (36-48); MEAN CORPUSCULAR HEMOGLOBIN 30.2 pg (27.0-33.0); MEAN CORPUSCULAR HGB CONC 30.2 g/dL (32.0-36.0); RED BLOOD CELL COUNT(AUTO) 2.45 MIL/uL (4.00-5.50); RED CELL DISTRIBUTION WIDTH 16.8 % (11.0-15.5); WHITE BLOOD COUNT (AUTO) 10.1 K/uL (4.8-10.8)
[2022-02-08 05:39] LABS: MAGNESIUM 1.6 mg/dL (1.80-2.40); POTASSIUM 4.5 mmol/L (3.5-5.1)
[2022-02-08 07:30] VITALS: BP 118/56
[2022-02-08] MEDS: ASENAPINE PEG SCH ×2 (08:32→20:10)
[2022-02-08] MEDS: LANSOPRAZOLE 15 MG SOLU TAB GT SCH ×2 (08:32→19:59)
[2022-02-08] MEDS: DIAZEPAM 5 MG TABLET PO SCH ×2 (08:32→19:59)
[2022-02-08] MEDS: [UNRECOGNIZED DRUG - OTHER] PEG SCH ×2 (08:32→20:10)
[2022-02-08] MEDS: NYSTATIN 15 GM POWDER TP SCH ×3 (08:34→20:00)
[2022-02-08 11:15] VITALS: BP 135/57
[2022-02-08] MEDS: MAGNESIUM OXIDE 400 MG TABLET PO SCH (15:07)
[2022-02-08 15:15] VITALS: BP 122/46
[2022-02-08] MEDS: DOXEPIN HCL 25 MG CAP PO SCH (19:59)
[2022-02-08 20:00] VITALS: BP 125/50
[2022-02-09] VITALS (10 sets, daily range): BP systolic 116–145; BP diastolic 46–65
[2022-02-09] MEDS: RISPERIDONE 1 MG TABLET GT SCH ×4 (03:23→21:02)
[2022-02-09] MEDS: LANSOPRAZOLE 15 MG SOLU TAB GT SCH ×2 (09:20→21:00)
[2022-02-09] MEDS: DIAZEPAM 5 MG TABLET PO SCH ×2 (09:20→21:00)
[2022-02-09] MEDS: NYSTATIN 15 GM POWDER TP SCH ×3 (09:20→21:02)
[2022-02-09] MEDS: ASENAPINE PEG SCH ×2 (09:20→21:02)
[2022-02-09] MEDS: [UNRECOGNIZED DRUG - OTHER] PEG SCH ×2 (09:20→21:02)
[2022-02-09] MEDS: MAGNESIUM OXIDE 400 MG TABLET PO SCH (15:14)
[2022-02-09 16:31] LABS: INR 0.98 (0.85-1.15); PROTHROMBIN TIME 10.7 SEC (9.6-11.6)
[2022-02-09 16:32] LABS: PARTIAL THROMBOPLASTIN TIME 27.9 SEC (26.3-35.5)
[2022-02-09] MEDS: BALSAM PERU/CASTOR OIL 60 GM TUBE TP SCH ×2 (21:00→22:26)
[2022-02-09] MEDS: DOXEPIN HCL 25 MG CAP PO SCH (21:01)
[2022-02-09] MEDS: 1/2 NS 1000ML 1,000 ML IV SCH ×2 (22:10→22:27)
[2022-02-09] MEDS: MAGNESIUM 2GM PREMIX 50ML 50 ML IV SCH (22:27)
[2022-02-10] VITALS: BP 129/55
[2022-02-10] MEDS: RISPERIDONE 1 MG TABLET GT SCH ×4 (03:09→20:08)
[2022-02-10 04:30] LABS: BASOPHILS % (AUTO) 0.2 % (0.0-5.0); EOSINOPHILS % (AUTO) 5.1 % (0.0-8.0); HEMATOCRIT 28.7 % (36-48); LYMPHOCYTES % (AUTO) 14.2 % (21.0-51.0); MEAN CORPUSCULAR HEMOGLOBIN 29.5 pg (27.0-33.0); MEAN CORPUSCULAR HGB CONC 30.7 g/dL (32.0-36.0); MEAN CORPUSCULAR VOLUME 96.3 fL (79-99); MONOCYTES % (AUTO) 7.2 % (3.0-13.0); NEUTROPHILS % (AUTO) 72.9 % (40.0-77.0); PLATELET COUNT (AUTO) 325 K/uL (130-400); RED BLOOD CELL COUNT(AUTO) 2.98 MIL/uL (4.00-5.50); RED CELL DISTRIBUTION WIDTH 19.7 % (11.0-15.5); WHITE BLOOD COUNT (AUTO) 12.1 K/uL (4.8-10.8)
[2022-02-10 04:32] VITALS: BP 139/52
[2022-02-10 04:46] LABS: ALBUMIN 1.4 g/dL (3.5-5.0); BILIRUBIN,TOTAL 0.4 mg/dL (0.2-1.0); CREATININE 0.9 mg/dL (0.5-1.5); MAGNESIUM 2.3 mg/dL (1.80-2.40); POTASSIUM 4.4 mmol/L (3.5-5.1); TOTAL PROTEIN, SERUM 5.5 g/dL (6.0-8.3)
[2022-02-10 08:25] VITALS: BP 123/47
[2022-02-10] MEDS: ASENAPINE PEG SCH ×2 (09:00→20:08)
[2022-02-10] MEDS: [UNRECOGNIZED DRUG - OTHER] PEG SCH ×2 (09:00→20:08)
[2022-02-10] MEDS: LANSOPRAZOLE 15 MG SOLU TAB GT SCH ×2 (10:30→20:08)
[2022-02-10] MEDS: DIAZEPAM 5 MG TABLET PO SCH ×2 (10:31→20:09)
[2022-02-10] MEDS: NYSTATIN 15 GM POWDER TP SCH ×3 (10:32→20:09)
[2022-02-10] MEDS: BALSAM PERU/CASTOR OIL 60 GM TUBE TP SCH ×2 (10:33→20:09)
[2022-02-10 12:25] VITALS: BP 117/37
[2022-02-10] MEDS ORDERED: LACTULOSE 20 GM/30 ML UDCUP PO SCH (13:30)
[2022-02-10] MEDS ORDERED: MAGNESIUM CITRATE 296 ML SOLUTION PO SCH (13:30)
[2022-02-10] MEDS: MAGNESIUM OXIDE 400 MG TABLET PO SCH (13:38)
[2022-02-10 16:12] VITALS: BP 141/64
[2022-02-10 19:00] VITALS: BP 122/55
[2022-02-10] MEDS: DOXEPIN HCL 25 MG CAP PO SCH (20:09)
[2022-02-11] VITALS: BP 120/58
[2022-02-11] MEDS: RISPERIDONE 1 MG TABLET GT SCH ×3 (02:54→13:52)
[2022-02-11 04:00] VITALS: BP 119/52
[2022-02-11 08:03] VITALS: BP 110/45
[2022-02-11] MEDS: DIAZEPAM 5 MG TABLET PO SCH (09:26)
[2022-02-11] MEDS: [UNRECOGNIZED DRUG - OTHER] PEG SCH (09:26)
[2022-02-11] MEDS: ASENAPINE PEG SCH (09:26)
[2022-02-11] MEDS: BALSAM PERU/CASTOR OIL 60 GM TUBE TP SCH (09:27)
[2022-02-11] MEDS: LANSOPRAZOLE 15 MG SOLU TAB GT SCH (09:27)
[2022-02-11] MEDS: NYSTATIN 15 GM POWDER TP SCH ×2 (09:28→13:53)
[2022-02-11] MEDS ORDERED: POLYETHYLENE GLYCOL 3350 17 GM POWD.PACK PO SCH (09:30)
[2022-02-11] MEDS ORDERED: LACTULOSE 20 GM/30 ML UDCUP PO SCH (09:30)
[2022-02-11] MEDS: DiphenhydrAMINE HCL 25 MG/10 ML ELIXIR UDCUP PO PRN (11:30)
[2022-02-11 11:35] VITALS: BP 115/44
[2022-02-11] MEDS: MAGNESIUM OXIDE 400 MG TABLET PO SCH (13:52)
== END 2022-02-11 14:30 | DRG 871 ==
LOC: EDH 15:35 → EDHIP 18:59 → 2BH 12-13 00:22 → 4CH 12-21 08:18 → 3CH 12-30 19:00 → 3AH 01-19 22:04 → 3CH 01-22 16:45 → 3DH 02-03 06:51
PROVIDERS: ADMIT Internal Medicine Infectious Disease; ATTEND Internal Medicine Infectious Disease
PROC: 30233N1 Transfusion of Nonautologous Red Blood Cells into Peripheral Vein, Percutaneous Approach (ICD-10-PCS; principal; 2022-01-01)
PROC: 0DH63UZ Insertion of Feeding Device into Stomach, Percutaneous Approach (ICD-10-PCS; 2022-01-04)
PROC: 0DH63UZ Insertion of Feeding Device into Stomach, Percutaneous Approach (ICD-10-PCS; 2022-01-21)
PROC: 02HV33Z Insertion of Infusion Device into Superior Vena Cava, Percutaneous Approach (ICD-10-PCS; 2022-01-29)
PROC: 30233N1 Transfusion of Nonautologous Red Blood Cells into Peripheral Vein, Percutaneous Approach (ICD-10-PCS; 2022-02-09)
DX: A41.9 Sepsis, unspecified organism (principal); J96.01 Acute respiratory failure with hypoxia; N17.0 Acute kidney failure with tubular necrosis; G92.8 Other toxic encephalopathy; J18.9 Pneumonia, unspecified organism; R57.1 Hypovolemic shock; D61.818 Other pancytopenia; N39.0 Urinary tract infection, site not specified; M62.82 Rhabdomyolysis; E87.0 Hyperosmolality and hypernatremia; I82.612 Acute embolism and thrombosis of superficial veins of left upper extremity; R65.20 Severe sepsis without septic shock; E87.5 Hyperkalemia; E11.22 Type 2 diabetes mellitus with diabetic chronic kidney disease; E66.9 Obesity, unspecified; E78.5 Hyperlipidemia, unspecified; F20.9 Schizophrenia, unspecified; I12.9 Hypertensive chronic kidney disease with stage 1 through stage 4 chronic kidney disease, or unspecified chronic kidney disease; N18.9 Chronic kidney disease, unspecified; D63.8 Anemia in other chronic diseases classified elsewhere; E78.00 Pure hypercholesterolemia, unspecified; Z20.822 Contact with and (suspected) exposure to COVID-19; E83.42 Hypomagnesemia; E86.0 Dehydration; E87.70 Fluid overload, unspecified; L89.322 Pressure ulcer of left buttock, stage 2; L89.312 Pressure ulcer of right buttock, stage 2; K21.00 Gastro-esophageal reflux disease with esophagitis, without bleeding; K29.00 Acute gastritis without bleeding; K44.9 Diaphragmatic hernia without obstruction or gangrene; F02.80 Dementia in other diseases classified elsewhere, unspecified severity, without behavioral disturbance, psychotic disturbance, mood disturbance, and anxiety; G20 Parkinson's disease; G40.901 Epilepsy, unspecified, not intractable, with status epilepticus; K26.9 Duodenal ulcer, unspecified as acute or chronic, without hemorrhage or perforation; I48.91 Unspecified atrial fibrillation; Z93.1 Gastrostomy status; Z86.718 Personal history of other venous thrombosis and embolism; Z83.3 Family history of diabetes mellitus; Z80.0 Family history of malignant neoplasm of digestive organs; Z79.899 Other long term (current) drug therapy; Z74.01 Bed confinement status; Z68.30 Body mass index [BMI] 30.0-30.9, adult; L89.610 Pressure ulcer of right heel, unstageable; L89.622 Pressure ulcer of left heel, stage 2; S80.211A Abrasion, right knee, initial encounter; B95.2 Enterococcus as the cause of diseases classified elsewhere; B95.61 Methicillin susceptible Staphylococcus aureus infection as the cause of diseases classified elsewhere; R13.12 Dysphagia, oropharyngeal phase
CPT/HCPCS: 36415; 36430; 36600; 43246; 70450; 70551; 71045; 72125; 73562; 74018; 74176; 76770; 80048; 80053; 80069; 80202; 80305; 81001; 82010; 82140; 82270; 82435; 82550; 82803; 82947; 82948; 83036; 83540; 83550; 83605; 83735; 83874; 83880; 84100; 84132; 84134; 84145; 84295; 84484; 85014; 85018; 85025; 85027; 85378; 85384; 85610; 85730; 86677; 86850; 86900; 86901; 86923; 87040; 87077; 87088; 87186; 87635; 92507; 92610; 93005; 93970; 93971; 95819; 97039; 99291; A4606; C1751; C1894; G0378; J0282; J0690; J0696; J1100; J1200; J1630; J1644; J1815; J1940; J1953; J2060; J2185; J2405; J2543; J2704; J2997; J3475; J3480; J3490; J7030; J7040; J7050; J7060; J7070; J7120; P9016; Q0163